=== PATIENT | female | born 1945 ===

== ENCOUNTER → 2022-05-17 14:10 | Outpatient (REF) | payer MEDICARE, SELFPAY ==
--- NOTE | 2022-05-17 14:16 | CA_ITS ---
Transthoracic Echocardiogram Patient (Last, First, Middle): [place] Obrien H Gender: Female Date of : 1945 Age: 76 Procedure Date: 05/17/2022 Procedure Type: Transthoracic Echocardiogram Location: OP Height: 147.32 cm Weight: 74.84 kg BSA: 1.68 m2 Heart Rate: 58 bpm BP: 140 / 80 mmHg Case Preparer And Liner: JOSE Referring MD: Una Donaldson MD Waxer Floor: Kevin Marie MD Symptoms: CARDIAC MURMUR Study Quality: Adequate ECG Rhythm: Bradycardia Conclusions: - 1. Normal LV systolic function with mild LVH 2. Moderate aortic stenosis, could be overestimated due to calculated LVOT diameter with mean gradient of 16 mm Hg 3. Mild aortic regurgitation 4. Normal RV systolic pressure 5. No gross pericardial effusion Findings Left Ventricle Normal left ventricular size and systolic function. There is mildly increased left ventricular wall thickness. The visually estimated ejection fraction is between 60-65%. Spectral Doppler is indicative of an impaired relaxation filling pattern. E/E prime ratio is between 8 and 15 consistent with indeterminate filling pressures. Right Ventricle Normal right ventricular cavity size and systolic function. Atria The left atrium is likely dilated. There is lipomatous hypertrophy of the interatrial septum. There is no evidence of interatrial shunt. The right atrium is normal in size. Aortic Valve The aortic valve was not well visualized. There is mild calcification of the aortic valve. There is moderate aortic valve stenosis. The mean gradient is 16 mmHg. The aortic valve area is 1.21 cm2. There is mild aortic valve regurgitation. Mitral Valve There is mild anterior mitral leaflet thickening. There is moderate mitral annular calcification. There is trace mitral valve regurgitation. There is no mitral valve stenosis. Pulmonic Valve The pulmonic valve was not well visualized. Tricuspid Valve Likely normal tricuspid valve structure and function. There is trace tricuspid valve regurgitation. The right ventricular systolic pressure is normal. Normal right atrial pressure. There is no evidence of pulmonary hypertension. Great Vessels The aorta was not well visualized. The pulmonary artery was not well visualized. Venous The inferior vena cava is normal in size and collapses greater than 50% with inspiration. Pericardium/Pleural There is no evidence of pericardial effusion. Prior Study Comparison Changes noted compared to prior study dated: 01/24/2019. aortic stenosis is present Measurements 2D Linear Measurements IVSd: 1.22 0.6-0.9/0.6-1.0 cm LVIDd: 3.43 3.9-5.3/4.2-5.9 cm LVIDd Index: 2.04 2.4-3.2/2.2-3.1 cm/m2 LVIDs: 2.15 2.0-3.6 cm LVPWd: 1.22 0.7-1.1 cm LA Diam: 3.50 2.7-3.8/3.0-4.0 cm LAIDs Index: 2.08 1.5-2.3 cm/m2 LV Mass: 168.38 67-162/88-224 g LV Mass Index: 100.23 43-95/49-115 g/m2 LVOT Diam: 1.90 3.0+(-)1.3 cm 2D Systolic Function EF 4C: 59.70 >55% EF 2C: 62.70 >55% EF BiP: 61.20 >55% Mitral Valve MV Pk E: 0.71 MV PK A: 1.13 MV Decel Time: 278.00 E/A: 0.60 E'Lateral: 5.33 E'Medial: 4.24 E/E' Med: 16.70 E/E' Lat: 13.30 PHT: 81.00 MVA PHT: 2.72 Decel [place]: 2.55 Aortic Valve AoV Pk Ke[place]: 2.70 AoV Mn Ke[place]: 1.86 AoV VTI: 0.65 AoV Pk Grad: 29.00 Aov Mn Grad: 16.00 JULIANA Cont.VTI: 1.21 AI Pk [place]: 4.91 AI [place]: 2.63 LVOT LVOT Pk Keenan: 1.15 LVOT Mn [place]: 0.81 LVOT VTI: 0.28 LVOT Pk Grad: 5.00 LVOT Mn Grad: 3.00 LVOT Diam: 1.90 LVOT Area: 2.84 Diastolic Function MV Pk E: 0.71 MV Pk A: 1.13 E/A: 0.60 E'Medial: 4.24 E/E' Med: 16.70 E' Laterial: 5.33 E/E' Lat: 13.30 Right Ventricle TAPSE (mm): 25.60 TVS' [place]: 11.80 Tricuspid Valve TR Pk [place]: 1.67 TR Pk Grad: 11.00 RA Press: 3.00 RVSP: 14.00 Great Vessels Aorta Sinus of Valsalva: 2.80 2.0-3.5 cm Ao Asc: 2.20 2.1-3.4 cm Pulmonary Valve PV Pk Ke[place]: 1.29 Peak PV Grad: 7.00 Updated in Other Vendor System with Status of Final Kevin Marie MD electronically signed on 05/17/2022 4:25:37 PM with status of Final
== END ==
LOC: HO.CARD 14:10
PROVIDERS: PCP Internal Medicine; Visit Provider Internal Medicine
DX: R01.1 Cardiac murmur, unspecified (principal)
CPT/HCPCS: 93306

== ENCOUNTER → 2022-06-25 09:35 | Outpatient (BNVA) | payer MEDICARE, SELFPAY | PROVIDERS: PCP Internal Medicine; Referring Provider Internal Medicine; Visit Provider Internal Medicine Cardiovascular Disease | DX: R06.02 Shortness of breath (principal); I35.0 Nonrheumatic aortic (valve) stenosis | CPT/HCPCS: 93005; 99212 ==

== ENCOUNTER 2022-07-01 08:37 | Outpatient (REF) | payer MEDICARE, SELFPAY ==
[2022-07-01 12:03] LABS: Cholesterol 261 mg/dL; HDL Cholesterol 49 mg/dL; LDL Cholesterol Calculated 185 mg/dl; Triglycerides 135 mg/dL
== END 2022-07-01 08:38 | disposition home or self-care (01) ==
LOC: HO.HMGCLDS 08:37
PROVIDERS: PCP Internal Medicine; Visit Provider Internal Medicine Cardiovascular Disease
DX: I25.10 Atherosclerotic heart disease of native coronary artery without angina pectoris (principal); I35.0 Nonrheumatic aortic (valve) stenosis
CPT/HCPCS: 36415; 80061

== ENCOUNTER → 2022-07-19 08:06 | Outpatient (REF) | payer MEDICARE, SELFPAY ==
--- NOTE | ~2022-07-19 | NM_ITS ---
Lexiscan Myocardial perfusion study Indication: Coronary disease, assess for ischemia Technique: The patient was brought in for a Lexiscan perfusion study on 07/19/2022 and was injected 0.4 mg of Lexiscan intravenously. Within a minute of this injection 25 mCi of sestamibi was given intravenously. Images were obtained using the SPECT gamma camera interlaced with the gating device. Images were obtained in supine position. Resting perfusion study was performed on 07/20/2022. Patient was administered 25 mCi of sestamibi intravenously at rest. Images were then obtained in supine position. Images were processed with the software and compared side to side in short axis, horizontal long axis and vertical long axis views. Total DLP 129mGy-cm. Findings: Raw acquisition reviewed. The stress perfusion study showed mildly diminished tracer uptake in the lateral wall. Mildly reduced tracer uptake at the apical lateral wall. There is improvement with CT attenuation correction, suggestive of components of soft tissue attenuation. The gated study shows normal LV systolic function with calculated LVEF of 73%. LV cavity is normal in size. The gated study shows normal wall thickening and contraction of segments. Resting study shows no significant perfusion abnormality. Gating at rest reveals normal wall motion with ejection fraction at 66%. The findings are consistent with mild reversible perfusion defect in the basal lateral wall and apical lateral wall probably from soft tissue attenuation artifact. NM/NM cardiolite stress test Impression: 1. Myocardial perfusion imaging study shows no clear evidence of any ischemia or infarction. Likely normal myocardial perfusion. 2. Gated LVEF is 70% during stress and 66% during rest. 3. Transient ischemic dilatation not present. EKG component of the test reported separately.
--- NOTE | 2022-07-19 08:09 | CA_ITS ---
Acquisition Time: 2022-07-19 08:31:41 Total Exercise Time: 00:03:04 Test Indications: CHEST PAIN SOB Medications: LISINOPRIL METOPROLOL ALBUTEROL Protocol: KIRSTEN Max HR: 097 BPM 68% of Pred: 142 BPM Max BP: 138/074 mmHG Max Work Load: 4.6 METS Exercise stress test with exercise 3 min 4 sec of Kirsten protocol, with request to stop due to sob and inability to keep up with speed of treadmill, EKGs nondiagnositic due to suboptimal heart rate. Patient assisted to sitting position and once breathing improved, testing changed to a pharmacological stress test with Lexiscan injection, while sitting and kicking her legs, with mild sob, no chest discomfort, with isolated PVCs and PACs, with normotenisive response to injection, with nondiagnostic EKG for ischemia. In recovery she was treated with Aminophylline 75mg IVP to reverse Lexiscan. Nuclear images pending. Test reviewed with Dr Marie Referred By: Kevin Marie Overread By: CHARISMA MCCULLOUGH
== END ==
LOC: HO.CARD 08:06
PROVIDERS: PCP Internal Medicine; Visit Provider Internal Medicine Cardiovascular Disease
DX: R07.9 Chest pain, unspecified (principal); R06.02 Shortness of breath
CPT/HCPCS: 78452; 93017; A9500; J0280; J2785

== ENCOUNTER → 2022-08-11 10:40 | Outpatient (BNVA) | payer MEDICARE, SELFPAY | PROVIDERS: PCP Internal Medicine; Referring Provider Internal Medicine; Visit Provider Internal Medicine Cardiovascular Disease | DX: I35.0 Nonrheumatic aortic (valve) stenosis (principal); I10 Essential (primary) hypertension | CPT/HCPCS: 99212 ==

== ENCOUNTER 2022-09-13 10:01 | Outpatient (REF) | payer MEDICARE, SELFPAY ==
--- NOTE | ~2022-09-13 | XR_ITS ---
EXAMINATION: XR CHEST CLINICAL INFORMATION: Shortness of breath COMPARISON: None available. TECHNIQUE: 2 views of the chest were obtained. FINDINGS: The cardiac silhouette does not appear enlarged. The thoracic aorta is tortuous and calcified. Hilar and mediastinal contours are otherwise unremarkable. Biapical pleural thickening. The lungs are otherwise clear. No pleural effusion or pneumothorax. Scoliosis and degenerative changes of the spine. XR/XR chest 2V IMPRESSION: No evidence for acute disease in the chest.
== END 2022-09-13 10:02 | disposition home or self-care (01) ==
LOC: HO.XRAY 10:01
PROVIDERS: PCP Internal Medicine; Visit Provider Internal Medicine
DX: J44.9 Chronic obstructive pulmonary disease, unspecified (principal); G47.33 Obstructive sleep apnea (adult) (pediatric); Z87.891 Personal history of nicotine dependence; Z79.899 Other long term (current) drug therapy
CPT/HCPCS: 71046; 99202

== ENCOUNTER 2022-09-17 10:28 | Outpatient (REF) | payer MEDICARE, SELFPAY | END 2022-09-17 10:29 | disposition home or self-care (01) | LOC: HO.RESP 10:28 | PROVIDERS: PCP Internal Medicine; Visit Provider Internal Medicine | DX: J44.9 Chronic obstructive pulmonary disease, unspecified (principal); R06.02 Shortness of breath; R40.0 Somnolence; G47.33 Obstructive sleep apnea (adult) (pediatric); Z87.891 Personal history of nicotine dependence | CPT/HCPCS: 94060; 94727; 94729 ==

== ENCOUNTER 2022-10-26 14:20 | Outpatient (AMB) | payer MEDICARE, SELFPAY ==
--- NOTE | 2022-10-26 14:31 | A.OFFVIS_ITS ---
Intake Vital Signs 10/26/22 14:32 Height 4 ft 11 in Weight 169 lb BMI 34.1 BP 130/80 Blood Pressure Location Lt brachial Position Sitting Pulse 58 Pulse Source Pulse Oximeter Pulse Oximetry (%) 97 Oxygen Delivery Method Room Air Intake Visit Reasons: copd Intake Note: pt is here for follow up and states she is very short of breath with walking, pt would like to be tested for portable oxygen if needed, weather is not good for her. Hot Die Picker Required: No Allergies codeine Allergy (Unknown, Verified 10/26/22 16:23) Nausea and Vomiting meperidine [Demerol] Allergy (Unknown, Verified 10/26/22 16:23) mental state penicillin V Allergy (Unknown, Verified 10/26/22 16:23) Rash Heyinlq-BXO-UcG Reductase Inhibitor Adverse Reaction (Intermediate, Verified 10/26/22 16:23) muscle aches all over Darvon Allergy (Unknown, Uncoded 10/26/22 16:23) mental state Dust Allergy (Unknown, Uncoded 10/26/22 16:23) Cough Latex Allergy (Unknown, Uncoded 10/26/22 16:23) Rash Sesonal Allergy (Unknown, Uncoded 10/26/22 16:23) sneze, cough Medication List - Last Reconciled 10/26/22 by Ami Calzada MD albuterol sulfate 90 mcg/actuation 0 mcg inhalation evolocumab (Repatha SureClick) 140 mg subcut Q2W ezetimibe 10 mg PO DAILY ketorolac 0.5% 0 drps ophthalmic (eye) lisinopril-hydrochlorothiazide 20-12.5 mg 1 tab PO DAILY metoprolol succinate ER 200 mg PO DAILY nitrofurantoin monohyd/m-cryst 100 mg 1 cap PO BID triamcinolone acetonide 0.025% 1 appl topical BID Do you need a note to return to daycare/school/sports/work: No HPI copd HPI Details 77 YEARS OLD FEMALE, WITH PAST HISTORY OF SMOKING, ALSO MODERATELY OBESE, COMES FOR FOLLOW-UP, SHE HAS HAD CHEST X-RAY WHICH WAS NORMAL. SHE HAS HAD PULMONARY FUNCTION TEST WHICH IS ABNORMAL, SHOWING MODERATELY SEVERE OBSTRUCTIVE AIRWAY DISORDER. HOME-BASED SLEEP STUDY HAS NOT BEEN SCHEDULED YET. AGAIN COMPLAINS OF SHORTNESS OF BREATH ON WALKING, ESPECIALLY IF SHE WALKS FAST OR CLIMBS STAIRS. DENIES ANY WHEEZING. SHE WAS GIVEN ALBUTEROL INHALER TO USE P.R.N. BUT SHE HAS NOT NEEDED TO USE IT. WHEN SHE WALKS SHE ALSO FEELS, TIGHT IN FRONT OF HER CHEST SHE HAS HAD CARDIAC STRESS TEST WHICH WAS NEGATIVE. [facility] Medical History Aortic stenosis Cataract (lens) fragments in eye following cataract surgery, left eye COPD (chronic obstructive pulmonary disease) History of smoking at least 1 pack per day for at least 30 years HTN (hypertension) YADY (obstructive sleep apnea) PVCs (premature ventricular contractions) Somnolence, daytime Social History Patient Tobacco Use Status: Former Tobacco user Years Smoked: 66 Review of Systems Const All systems reviewed & are unremarkable except as noted in HPI and below Eyes Reports no additional complaints ENT Reports no additional complaints Card Denies chest pain, Denies syncope, Denies irregular heart rhythm and Denies leg edema Resp Reports as per HPI GI Reports no additional complaints Reports nocturia Musc Reports no additional complaints Skin/Breast Reports system reviewed and no additional complaints, except as documented Neuro Reports no additional complaints and Denies syncope Psych Reports no additional complaints Endo Reports no additional complaints Wade/Lymph Reports no additional complaints Aller/Immun Reports no additional complaints Physical Exam Vital Signs: Last Vital Signs Pulse 58 10/26/22 14:32 BP 130/80 10/26/22 14:32 Pulse Ox 97 10/26/22 14:32 Oxygen Delivery Method Room Air 10/26/22 14:32 BMI result Body Mass Index 34.1 She is moderately obese, neck is short and obese,, face is round. 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 Cardio Palpation: normal PMI Rate: regular rate Rhythm: regular rhythm Heart sounds: no gallops and Murmur heart sound present (Faint systolic murmur at aortic area) GI Palpation (GI): Soft to palpation, nontender, No hepatosplenomegaly present and no masses Auscultation: normal bowel sounds Back/Spine/Pelvis Thoracic/Lumbar Spine: thoracic and lumbar spine normal to inspection Skin General skin exam: no rashes or lesions noted Neuro General: patient oriented x3 and no focal motor deficits Cranial nerves: Yes CN's II-XII intact bilaterally Extrem General: Yes normal to inspection, Yes no clubbing, cyanosis or edema and Yes no calf tenderness Psych Appearance: grossly normal and well kempt Speech and movement: Normal speech and movement present Office Procedures 6 Minute Walk Time:: 15:00 SPO2 % at rest: 95 Pulse at rest: 59 SPO2 % during excercise: 94 Pulse during excercise: 73 SPO2 % after excercise: 95 Pulse after excercise: 70 Distance in yards walked: 200 Thomas Score: 5 Performance Observations:: Geneva walked on level ground without assistance, she walked on room air for the entire walk. She maintained her SPO2 94-96% on room air, no supplemental O2 [place] [id number] - 6 Minute Walk Results Reviewed Results Reviewed: Chest. x-ray normal Pulmonary function test, moderate degree of obstructive airway disorder. FEF 25-75 did improved by 30% after BD therapy. 6 minutes walk test done today : Walked good . There was no significant desaturation. Lowest O2 sat 94% Assessment & Plan Assessment & Plan (1) History of smoking at least 1 pack per day for at least 30 years: Comment: She does have history of smoking, luckily .quit is more than 6 years ago Chest x-ray is ordered. Code(s): Z87.891 - Personal history of nicotine dependence (2) COPD (chronic obstructive pulmonary disease): Comment: As per pulmonary function test she has moderately severe obstructive airway disorder. There was slight improvement in FEF 25-75 , but not in the other numbers. [place] : Had a good discussion with the patient and explained to her the findings of the PFT. Will try a LAMA agent / and see if it improves her breathing. ( Incr use Ellipta or equivalent ) Albuterol HFA 1 or 2 puffs Q 4-6 hours only p.r.n.. Code(s): J44.9 - Chronic obstructive pulmonary disease, unspecified (3) SOB (shortness of breath) on exertion: Comment: Dyspnea on exertion, moderately severe, probably secondary to chronic obstructive pulmonary disease/ . And overweight She was observed to walk fairly fast without any distress. 6 minutes walk test did not show any exercise induced hypoxemia. Patient is encouraged to lose weight, and do deep breathing exercises t.i.d.. Code(s): R06.02 - Shortness of breath (4) Somnolence, daytime: Comment: Patient does have excessive snoring at night as for her son. She wakes up a few times during the night. She remains tired during the daytime. She tends to fall asleep if early in the evening of specially after dinner. NEED TO CHECK HER FOR OBSTRUCTIVE SLEEP APNEA. Code(s): R40.0 - Somnolence (5) YADY (obstructive sleep apnea): Comment: She has physical features is indicated of obstructive sleep apnea. She has history of oxygen desaturations during the night, again indicative of of sleep apnea. She does have daytime sleepiness but tries to stay active. PLAN : AFTER FULL DISCUSSION WITH HER, DECIDED THAT SHE SHOULD HAVE HOME-BASED SLEEP STUDY. Will decide after the sleep study if she needs is CPAP therapy or not . Code(s): G47.33 - Obstructive sleep apnea (adult) (pediatric) Orders: Orders AMB 6 minute walk Today R06.02 - Shortness of breath Coding Level of Care Code Est Pt Level 3 (01363) Diagnoses History of smoking at least 1 pack per day for at least 30 years Z87.891 COPD (chronic obstructive pulmonary disease) J44.9 SOB (shortness of breath) on exertion R06.02 Somnolence, daytime R40.0 YADY (obstructive sleep apnea) G47.33 CPT Codes Coding ([id number])
[2022-10-26 14:32] VITALS: BP 130/80; PULSE 58; O2SAT 97; BMI 34.1
[2022-10-26 15:09] VITALS: PULSE 59; O2SAT 95
== END 2022-10-26 15:19 | disposition home or self-care (01) ==
PROVIDERS: PCP Internal Medicine; Visit Provider Internal Medicine
DX: Z87.891 Personal history of nicotine dependence (principal); J44.9 Chronic obstructive pulmonary disease, unspecified; R06.02 Shortness of breath; R40.0 Somnolence; G47.33 Obstructive sleep apnea (adult) (pediatric)
CPT/HCPCS: 94618; 99213

== ENCOUNTER → 2022-10-26 14:20 | Outpatient (BNVA) | payer MEDICARE, SELFPAY | PROVIDERS: PCP Internal Medicine; Visit Provider Internal Medicine | DX: J44.9 Chronic obstructive pulmonary disease, unspecified (principal); R06.02 Shortness of breath; R40.0 Somnolence; G47.33 Obstructive sleep apnea (adult) (pediatric); Z87.891 Personal history of nicotine dependence | CPT/HCPCS: 94618; 99212 ==

== ENCOUNTER 2022-11-04 12:42 | Outpatient (AMB) | payer MEDICARE, SELFPAY ==
[2022-11-04 14:36] VITALS: BP 126/76; PULSE 53; O2SAT 94; BMI 34.1
--- NOTE | 2022-11-04 14:36 | MHC.OFFWIV ---
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 Intake Note: Pt is here today for a walk in visit. Pt c/o pain and burning when urinating lower abdominal pain for few days. Patient Tobacco Use Status: Former Tobacco user Allergies codeine Allergy (Unknown, Verified 11/04/22 14:46) Nausea and Vomiting meperidine [Demerol] Allergy (Unknown, Verified 11/04/22 14:46) mental state penicillin V Allergy (Unknown, Verified 11/04/22 14:46) Rash Akvrkkn-THO-DiV Reductase Inhibitor Adverse Reaction (Intermediate, Verified 11/04/22 14:46) muscle aches all over [place] Allergy (Unknown, Uncoded 11/04/22 14:46) mental state Dust Allergy (Unknown, Uncoded 11/04/22 14:46) Cough Latex Allergy (Unknown, Uncoded 11/04/22 14:46) Rash Sesonal Allergy (Unknown, Uncoded 11/04/22 14:46) sneze, cough 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 HPI Details Patient is a 77-year-old female comes to the walk-in clinic complaining of painful urination and lower abdominal pressure for the last few days. She states symptoms are similar to when she gets urinary tract infections in the past. She has a history of incontinence of urine. She is also started on new respiratory med that she states has urinary tract infections as a side effect. She states that she does have a urologist that she sees, and it is common for her to not have any abnormal findings on her urinalysis. I asked if she had been diagnosed with interstitial cystitis, and she said no. She states her symptoms usually clear with antibiotics. She denies fever or chills, gross hematuria, nausea vomiting or diarrhea, dizziness or weakness, or other significant associated symptoms. Reviewed past medical history with the patient [facility] Medical History Aortic stenosis Cataract (lens) fragments in eye following cataract surgery, left eye COPD (chronic obstructive pulmonary disease) History of smoking at least 1 pack per day for at least 30 years HTN (hypertension) YADY (obstructive sleep apnea) PVCs (premature ventricular contractions) Somnolence, daytime Social History Patient Tobacco Use Status: Former Tobacco user Years Smoked: 66 Review of Systems Const All systems reviewed & are unremarkable except as noted in HPI and below Physical Exam Vital Signs: Last Vital Signs Pulse 53 11/04/22 14:36 BP 126/76 11/04/22 14:36 Pulse Ox 94 11/04/22 14:36 Oxygen Delivery Method Room Air 11/04/22 14:36 BMI result Body Mass Index 34.1 Const General: cooperative, healthy appearing, comfortable, no acute distress, alert, awake, Physically active and well groomed; No anxious, diaphoretic, ill appearing, intoxicated appearing, poor hygiene or tired appearing Nutritional Appearance: average body habitus Limitations: no limitations Resp Effort & Inspection: normal respiratory effort Auscultation: clear to auscultation bilaterally, no crackles, no rales, no rhonchi, no wheezes, lung sounds not diminished and No rub present Cardio Rate: regular rate Rhythm: regular rhythm GI Palpation (GI): Soft to palpation, Tenderness to palpation present (GI) suprapubicly and no guarding General: Yes no CVA tenderness Back/Spine/Pelvis Back: no CVA tenderness Psych Appearance: grossly normal Mental Status: mental status grossly normal Speech and movement: Normal speech and movement present Affect: normal affect Attitude: cooperative Thought process: Normal thought process present Insight: Good insight present (Psych) Judgement: Good judgement present (Psych) Results AMB Urinalysis, Automated UA Leukoctes 0 Radha/uL Last Edit by SANTANA Malcolm on 11/04/22 14:50 UA Nitrite Negative Last Edit by SANTANA Malcolm on 11/04/22 14:50 UA Urobilinogen 0.2 mg/dL Last Edit by SANTANA Malcolm on 11/04/22 14:50 UA Protein 0 mg/dL Last Edit by SANTANA Malcolm on 11/04/22 14:50 UA pH 6.0 Last Edit by SANTANA Malcolm on 11/04/22 14:50 UA Blood 0 Gurpreet/uL Last Edit by Priyanka De Jesus, A on 11/04/22 14:50 UA Specific [place]pine 1.025 Last Edit by Priyanka De Jesus, A on 11/04/22 14:50 UA Ketone Negative Last Edit by Priyanka De Jesus, RMA on 11/04/22 14:50 UA Bilirubin 0 mg/dL Last Edit by Priyanka De Jesus, RMA on 11/04/22 14:50 UA Glucose 0 mg/dL Last Edit by Priyanka De Jesus, RMA on 11/04/22 14:50 Results Reviewed Results Reviewed: Laboratory Last Values Urine pH (Auto) 6.0 11/04/22 14:48 Specific [place]pine (Auto) 1.025 11/04/22 14:48 Urine Protein (Auto) 0 mg/dL 11/04/22 14:48 Glucose (UA)(Auto) 0 mg/dL 11/04/22 14:48 Urine Ketones (Auto) Negative 11/04/22 14:48 Urine Blood (Auto) 0 Gurpreet/uL 11/04/22 14:48 Urine Nitrite (Auto) Negative 11/04/22 14:48 Urine Bilirubin (Auto) 0 mg/dL 11/04/22 14:48 Urine Urobilinogen (Auto) 0.2 mg/dL 11/04/22 14:48 Leukocyte Esterase (Auto) 0 Radha/uL 11/04/22 14:48 Assessment & Plan Assessment & Plan (1) Dysuria: Code(s): R30.0 - Dysuria Plan Patient with possible recurrence cystitis, and no symptoms or costovertebral angle tenderness suggestive of pyelonephritis. I will send her urine out for microscopy and susceptibility testing and will start her empirically on nitrofurantoin. As she states that she has not been able to have bacteria grown with past flare-up of symptoms, it is possible that this is interstitial cystitis, however she does have a urologist and she can follow-up with them further. I advised adequate fluid intake, and monitoring symptoms. Orders: Orders UA CC w/rflx Micro + Cult 11/04/22 R30.0 - Dysuria JEFFREY Miller AMB Urinalysis Automated 11/04/22 Z13.9 - Encounter for screening, unspecified JEFFREY Miller Medications: New sulfamethoxazole-trimethoprim 800-160 mg (Bactrim DS) 1 tab PO BID 14 tabs 0RF 7 days Brien Frost MD Changed From nitrofurantoin monohyd/m-cryst 100 mg 1 cap PO BID To nitrofurantoin monohyd/m-cryst 100 mg 1 cap PO BID 10 caps 0RF 5 days JEFFREY Miller Coding Level of Care Code Est Pt Level 4 (38651) Diagnoses Dysuria R30.0
== END 2022-11-04 16:29 | disposition home or self-care (01) ==
PROVIDERS: PCP Internal Medicine; Visit Provider Physician Assistant Medical
DX: R30.0 Dysuria (principal)
CPT/HCPCS: 81003; 99214

== ENCOUNTER 2022-11-04 18:00 | Outpatient (REF) | payer MEDICARE, SELFPAY ==
[2022-11-04 18:15] LABS: Appearance Urine Clear; Color Urine Yellow; Glucose Urine UA Negative (Negative); Leukocyte Esterase Urine Trace (Negative); Nitrite Urine Negative (Negative); PH 5.5 (5.0-9.0); Specific Gravity - Urine 1.015 (1.005-1.025); UMIC TRIGGER UACC YES; Urine Blood Negative (Negative); Urine Ketones Negative (Negative); Urine Protein Negative (Neg-Trace)
[2022-11-04 18:18] LABS: Bacteria Urine None Seen (None Seen); Hyaline Casts Urine 0-2 /LPF (0-2); RBC Urine 0-2 /HPF (0-2); Squamous Epithelial Cell Urine 0-2 /HPF (0-2); WBC Urine 0-5 /HPF (0-5)
== END 2022-11-04 18:01 | disposition home or self-care (01) ==
LOC: HO.HMGCLNP 18:00
PROVIDERS: Visit Provider Physician Assistant Medical
DX: R30.0 Dysuria (principal)
CPT/HCPCS: 81001

== ENCOUNTER 2022-12-15 08:29 | Outpatient (REF) | payer MEDICARE, SELFPAY ==
--- NOTE | ~2022-12-15 | CT_ITS ---
EXAMINATION: CT ABDOMEN AND PELVIS WITHOUT AND WITH CONTRAST CLINICAL INFORMATION: Kidney and ureter cyst. COMPARISON: Renal ultrasound 05/27/2022. TECHNIQUE: Multidetector volumetric imaging was performed of the abdomen and pelvis before and after the IV administration of 85 mL of Omnipaque 350 intravenous contrast. Sagittal and coronal reformatted images were obtained on the technologist's workstation. This CT examination was performed using dose optimization techniques as appropriate, variously including the following: *Automated exposure control *Adjustment of mA and/or kV according to patient size (this includes techniques or standardized protocols for targeted exams where dose is matched to indication/reason for exam; i.e. extremities or head) *Use of iterative reconstruction technique DLP: 731 mGy-cm FINDINGS: LUNG BASES: The visualized lung bases are unremarkable. LIVER, GALLBLADDER, AND BILIARY TREE: The liver is normal in size, shape, and attenuation. No focal hepatic lesion or biliary ductal dilatation is present. Cholecystectomy. PANCREAS: The pancreas appears normal. No discrete mass or ductal dilatation. SPLEEN: The spleen appears normal. ADRENAL GLANDS: No adrenal mass. KIDNEYS AND URETERS: Symmetric nephrograms. Simple Bosniak 1 cysts are seen bilaterally in the kidneys. Additional tiny cortical hypodensities are too small to characterize but most likely cysts and are therefore categorized as Bosniak 2. No follow-up imaging is recommended. There is no suspicious solid renal mass. No nephrolithiasis. No hydroureteronephrosis. BLADDER: Unremarkable GASTROINTESTINAL TRACT: Small hiatal hernia. The small bowel is normal in caliber. No mesenteric mass or fluid. Minimal sigmoid diverticulosis without evidence of diverticulitis. ABDOMINAL WALL: No significant hernia is appreciated. LYMPH NODES: No adenopathy. VASCULAR: Moderate aortoiliac atherosclerotic disease. Negative for abdominal aortic aneurysm. PELVIC VISCERA: Unremarkable. OSSEOUS STRUCTURES: Degenerative changes in the spine. CT/CT abdomen pelvis wo/w IV con IMPRESSION: No suspicious renal mass. Fleischner guidelines were followed.
[2022-12-15] MEDS: iohexoL 350 MG/ML 100 ML INFUS..BTL IV (09:20)
[2022-12-15 13:21] LABS: Creatinine POC 0.8 mg/dL (0.5-1.4); GFR POC 60
== END 2022-12-15 08:30 | disposition home or self-care (01) ==
LOC: HO.CT 08:29
PROVIDERS: PCP Internal Medicine; Visit Provider Urology
DX: N28.89 Other specified disorders of kidney and ureter (principal); N28.1 Cyst of kidney, acquired
CPT/HCPCS: 74178; 82565; Q9967

== ENCOUNTER 2022-12-21 11:26 | Outpatient (REF) | payer MEDICARE, SELFPAY ==
[2022-12-21 13:48] LABS: Cholesterol 135 mg/dL (<200); HDL Cholesterol 43 mg/dL (>40); LDL Cholesterol Calculated 54 mg/dL (<100); Triglycerides 193 mg/dL (<150)
== END 2022-12-21 11:27 | disposition home or self-care (01) ==
LOC: HO.HMGCLDS 11:26
PROVIDERS: PCP Internal Medicine; Visit Provider Internal Medicine Cardiovascular Disease
DX: E78.5 Hyperlipidemia, unspecified (principal)
CPT/HCPCS: 36415; 80061

== ENCOUNTER 2023-01-03 14:04 | Outpatient (AMB) | payer MEDICARE, SELFPAY ==
[2023-01-03 14:07] VITALS: BP 122/76; PULSE 68; O2SAT 97; BMI 35.0
--- NOTE | 2023-01-03 14:07 | A.OFFVIS_ITS ---
Intake Vital Signs 01/03/23 14:07 Height 4 ft 11 in Weight 173 lb 1.006 oz BMI 35.0 BP 122/76 Blood Pressure Location Lt brachial Position Sitting Pulse 68 Pulse Source Doppler Pulse Oximetry (%) 97 Oxygen Delivery Method Room Air Intake Visit Reasons: copd Intake Note: Patient is here for a follow up on COPD, patient having trouble with Incruse El lipta side effects. patient stated no one has called her for sleep study Allergies codeine Allergy (Unknown, Verified 01/03/23 14:16) Nausea and Vomiting meperidine [Demerol] Allergy (Unknown, Verified 01/03/23 14:16) mental state penicillin V Allergy (Unknown, Verified 01/03/23 14:16) Rash Lhkaokf-HAY-FsR Reductase Inhibitor Adverse Reaction (Intermediate, Verified 01/03/23 14:16) muscle aches all over Darvon Allergy (Unknown, Uncoded 01/03/23 14:16) mental state Dust Allergy (Unknown, Uncoded 01/03/23 14:16) Cough Latex Allergy (Unknown, Uncoded 01/03/23 14:16) Rash Sesonal Allergy (Unknown, Uncoded 01/03/23 14:16) sneze, cough Medication List - Last Reconciled 01/03/23 by Ami Calzada MD albuterol sulfate 90 mcg/actuation 0 mcg inhalation evolocumab (Repatha SureClick) 140 mg subcut Q2W ezetimibe 10 mg PO DAILY ketorolac 0.5% 0 drps ophthalmic (eye) lisinopril-hydrochlorothiazide 20-12.5 mg 1 tab PO DAILY metoprolol succinate ER 200 mg PO DAILY nitrofurantoin monohyd/m-cryst 100 mg 1 cap PO BID 5 days sulfamethoxazole-trimethoprim 800-160 mg (Bactrim DS) 1 tab PO BID 7 days triamcinolone acetonide 0.025% 1 appl topical BID umeclidinium 62.5 mcg/actuation (Incruse Ellipta) 1 inh inhalation DAILY 30 days Do you need a note to return to daycare/school/sports/work: No HPI copd HPI Details This 77 years old female comes after 2 months, for follow-up On her last visit she was prescribed Incruse Ellipta 1 inhalation daily, and to use albuterol HFA . As needed She used Incruse Ellipta of 3-4 days. It. Was helping her breathing But she developed lot of symptoms such as gum irritation sore throat, body aches, and when she stop using Incruse Ellipta all the symptoms disappeared. At the same time she does want to a different inhaler that would help her to be able to walk around without getting short of breath. She continues to be tired during the daytime and sleepy, we had discussed about possible sleep apnea. She was supposed to have home sleep study. She missed her appointment in August , now she needs to have it rescheduled. [facility] Medical History Somnolence, daytime YADY (obstructive sleep apnea) History of smoking at least 1 pack per day for at least 30 years COPD (chronic obstructive pulmonary disease) Cataract (lens) fragments in eye following cataract surgery, left eye Aortic stenosis HTN (hypertension) PVCs (premature ventricular contractions) Social History Patient Tobacco Use Status: Former Tobacco user Years Smoked: 66 Review of Systems Const All systems reviewed & are unremarkable except as noted in HPI and below Eyes Reports no additional complaints ENT Reports no additional complaints Card Denies chest pain, Denies syncope, Denies irregular heart rhythm and Denies leg edema Resp Reports as per HPI GI Reports no additional complaints Reports nocturia Musc Reports no additional complaints Skin/Breast Reports system reviewed and no additional complaints, except as documented Neuro Reports no additional complaints and Denies syncope Psych Reports no additional complaints Endo Reports no additional complaints Wade/Lymph Reports no additional complaints Aller/Immun Reports no additional complaints Physical Exam Vital Signs: Last Vital Signs Pulse 68 01/03/23 14:07 BP 122/76 01/03/23 14:07 Pulse Ox 97 01/03/23 14:07 Oxygen Delivery Method Room Air 01/03/23 14:07 BMI result Body Mass Index 35.0 She is moderately obese, neck is short and obese,, face is round. 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 Cardio Palpation: normal PMI Rate: regular rate Rhythm: regular rhythm Heart sounds: no gallops and Murmur heart sound present (Faint systolic murmur at aortic area) GI Palpation (GI): Soft to palpation, nontender, No hepatosplenomegaly present and no masses Auscultation: normal bowel sounds Back/Spine/Pelvis Thoracic/Lumbar Spine: thoracic and lumbar spine normal to inspection Skin General skin exam: no rashes or lesions noted Neuro General: patient oriented x3 and no focal motor deficits Cranial nerves: Yes CN's II-XII intact bilaterally Extrem General: Yes normal to inspection, Yes no clubbing, cyanosis or edema and Yes no calf tenderness Psych Appearance: grossly normal and well kempt Speech and movement: Normal speech and movement present Assessment & Plan Assessment & Plan (1) COPD (chronic obstructive pulmonary disease): Comment: As per pulmonary function test she has moderately severe obstructive airway disorder. There was slight improvement in FEF 25-75 , but not in the other numbers. [place] : Had a good discussion with the patient and explained to her the findings of the PFT. Incruse Ellipta was prescribed. She had some side effects and stopped using it. She would like to have a long-acting bronchodilator , so that she can do daily activities without getting short of breath. I will order Advair 250-50 1 inhalation b.i.d. . And use albuterol HFA p.r.n. Albuterol HFA 1 or 2 puffs Q 4-6 hours only p.r.n.. Code(s): J44.9 - Chronic obstructive pulmonary disease, unspecified (2) SOB (shortness of breath) on exertion: Comment: Dyspnea on exertion, moderately severe, probably secondary to chronic obstructive pulmonary disease/ . And overweight She was observed to walk fairly fast without any distress. 6 minutes walk test was negative for hypoxemia. She is is encouraged to lose weight, and do deep breathing exercises t.i.d.. Code(s): R06.02 - Shortness of breath (3) History of smoking at least 1 pack per day for at least 30 years: Comment: She does have history of smoking, luckily .quit is more than 6 years ago She is participating in ANNUAL lung screening program Code(s): Z87.891 - Personal history of nicotine dependence (4) YADY (obstructive sleep apnea): Comment: She has physical features is indicated of obstructive sleep apnea. She has history of oxygen desaturations during the night, again indicative of of sleep apnea. She does have daytime sleepiness but tries to stay active. PLAN : SLEEP STUDY WAS ORDERED ON HER LAST VISIT BUT SHE MISSED THE APPOINTMENT. SHE WILL CALL FOR RESCHEDULING . Code(s): G47.33 - Obstructive sleep apnea (adult) (pediatric) (5) Somnolence, daytime: Comment: Patient does have excessive snoring at night as for her son. She wakes up a few times during the night. She remains tired during the daytime. She tends to fall asleep if early in the evening of specially after dinner. NEED TO CHECK HER FOR OBSTRUCTIVE SLEEP APNEA. Code(s): R40.0 - Somnolence Medications: New fluticasone propion-salmeterol 250-50 mcg/dose (Advair Diskus) 1 inh inhalation BID 60 ea 2RF copd 30 days Coding Level of Care Code Est Pt Level 3 (72694) Diagnoses COPD (chronic obstructive pulmonary disease) J44.9 SOB (shortness of breath) on exertion R06.02 History of smoking at least 1 pack per day for at least 30 years Z87.891 YADY (obstructive sleep apnea) G47.33 Somnolence, daytime R40.0
== END 2023-01-03 14:33 | disposition home or self-care (01) ==
PROVIDERS: PCP Internal Medicine; Visit Provider Internal Medicine
DX: J44.9 Chronic obstructive pulmonary disease, unspecified (principal); R06.02 Shortness of breath; Z87.891 Personal history of nicotine dependence; G47.33 Obstructive sleep apnea (adult) (pediatric); R40.0 Somnolence
CPT/HCPCS: 99213

== ENCOUNTER → 2023-01-03 14:04 | Outpatient (BNVA) | payer MEDICARE, SELFPAY | PROVIDERS: PCP Internal Medicine; Visit Provider Internal Medicine | DX: J44.9 Chronic obstructive pulmonary disease, unspecified (principal); G47.33 Obstructive sleep apnea (adult) (pediatric); R06.02 Shortness of breath; R40.0 Somnolence; Z87.891 Personal history of nicotine dependence | CPT/HCPCS: 99212 ==

== ENCOUNTER → 2023-01-04 09:02 | Outpatient (REF) | payer MEDICARE, SELFPAY | LOC: HO.SL 09:02 | PROVIDERS: PCP Internal Medicine; Visit Provider Internal Medicine | DX: G47.33 Obstructive sleep apnea (adult) (pediatric) (principal); R40.0 Somnolence | CPT/HCPCS: 95806 ==

== ENCOUNTER → 2023-01-04 09:29 | Outpatient (BNV) | payer MEDICARE, SELFPAY | PROVIDERS: PCP Internal Medicine; Visit Provider Internal Medicine | DX: G47.33 Obstructive sleep apnea (adult) (pediatric) (principal) | CPT/HCPCS: 95806 ==

== ENCOUNTER 2023-03-07 11:05 | Outpatient (AMB) | payer MEDICARE, SELFPAY ==
[2023-03-07 11:12] VITALS: BP 130/64; PULSE 63; O2SAT 96; BMI 34.5
--- NOTE | 2023-03-07 11:12 | A.OFFVIS_ITS ---
Intake Vital Signs 03/07/23 11:12 Height 4 ft 11 in Weight 170 lb 13.732 oz BMI 34.5 BP 130/64 Blood Pressure Location Lt brachial Position Sitting Pulse 63 Pulse Source Pulse Oximeter Pulse Oximetry (%) 96 Oxygen Delivery Method Room Air Intake Visit Reasons: copd Intake Note: pt is here for follow up and states she is okay, had a little wheeze but gone today, allergies kicking up. Allergies codeine Allergy (Unknown, Verified 03/07/23 11:35) Nausea and Vomiting meperidine [Demerol] Allergy (Unknown, Verified 03/07/23 11:35) mental state penicillin V Allergy (Unknown, Verified 03/07/23 11:35) Rash Xxcdmrw-PKS-SsA Reductase Inhibitor Adverse Reaction (Intermediate, Verified 03/07/23 11:35) muscle aches all over Darvon Allergy (Unknown, Uncoded 03/07/23 11:35) mental state Dust Allergy (Unknown, Uncoded 03/07/23 11:35) Cough Latex Allergy (Unknown, Uncoded 03/07/23 11:35) Rash Sesonal Allergy (Unknown, Uncoded 03/07/23 11:35) sneze, cough Medication List - Last Reconciled 03/07/23 by Ami Calzada MD albuterol sulfate 90 mcg/actuation 0 mcg inhalation evolocumab (Repatha SureClick) 140 mg subcut Q2W ezetimibe 10 mg PO DAILY fluticasone propion-salmeterol 250-50 mcg/dose (Advair Diskus) 1 inh inhalation BID 30 days ketorolac 0.5% 0 drps ophthalmic (eye) lisinopril-hydrochlorothiazide 20-12.5 mg 1 tab PO DAILY metoprolol succinate ER 200 mg PO DAILY triamcinolone acetonide 0.025% 1 appl topical BID Do you need a note to return to daycare/school/sports/work: No HPI copd HPI Details 77 YEARS OLD VERY PLEASANT FEMALE WHO IS MODERATELY OBESE, COMES FOR FOLLOW-UP AFTER 2 MONTHS. FOR BREATHING SHE HAS BEEN USING MOSTLY PROAIR ONCE OR TWICE A DAY. SHE DOES COMPLAIN OF INTERMITTENT WHEEZES, ESPECIALLY WHEN SHE WALKS AROUND OR CLIMBS STAIRS. ON HER LAST VISIT ADVAIR 250-50 WAS ORDERED BUT SHE DID NOT GET IT. SHE ALSO GETS SHORT OF BREATH ON WALKING UP HILL OR CLIMBING STAIRS. HER WEIGHT HAS REMAINED UNCHANGED. SLEEP REMAINS DISTURBED WITH LOT OF SNORING, WAKES UP IN THE MORNING WITH A DRY MOUTH. HOME-BASED SLEEP STUDY DOES CONFIRM DIAGNOSIS OF OBSTRUCTIVE SLEEP APNEA MILD TO MODERATE. [facility] Medical History (Updated 03/07/23 @ 11:45 by Ami Calzada MD) Obesity (BMI 30-39.9) Somnolence, daytime YADY (obstructive sleep apnea) History of smoking at least 1 pack per day for at least 30 years COPD (chronic obstructive pulmonary disease) Cataract (lens) fragments in eye following cataract surgery, left eye Aortic stenosis HTN (hypertension) PVCs (premature ventricular contractions) Social History Patient Tobacco Use Status: Former Tobacco user Years Smoked: 66 Review of Systems Const All systems reviewed & are unremarkable except as noted in HPI and below Eyes Reports no additional complaints ENT Reports no additional complaints Card Denies chest pain, Denies syncope, Denies irregular heart rhythm and Denies leg edema Resp Reports as per HPI GI Reports no additional complaints Reports nocturia Musc Reports no additional complaints Skin/Breast Reports system reviewed and no additional complaints, except as documented Neuro Reports no additional complaints and Denies syncope Psych Reports no additional complaints Endo Reports no additional complaints Wade/Lymph Reports no additional complaints Aller/Immun Reports no additional complaints Physical Exam Vital Signs: Last Vital Signs Pulse 63 03/07/23 11:12 BP 130/64 03/07/23 11:12 Pulse Ox 96 03/07/23 11:12 Oxygen Delivery Method Room Air 03/07/23 11:12 BMI result Body Mass Index 34.5 She is moderately obese, neck is short and obese,, face is round. 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 Const General: comfortable, no acute distress, alert and awake Orientation/consciousness: patient oriented x3 HEENT Head: Yes normal to inspection General nose exam: No nasal polyps present and No nasal discharge present Face and sinus: Yes sinuses nontender Mouth: oropharynx normal (Narrow and crowded, Mallampati class 3) Throat: Yes posterior oropharynx normal and Yes other (She does have RETROGANTH IA of the lower jaw) Eyes General: appearance normal, both eyes and all related structures Neck Neck: Yes normal visual inspection, Yes no lymphadenopathy, Yes trachea midline, Yes no JVD and Yes other (Neck size 16 1/2 ) Thyroid: Thyroid normal Chest Chest palpation & inspection: normal inspection of the chest, normal palpation of entire chest wall and no tenderness Resp Other: Percussion note resonant, breath sounds are diminished/distant with prolonged expiratory phase No crepitations or wheezes are heard. Cardio Palpation: normal PMI Rate: regular rate Rhythm: regular rhythm Heart sounds: no gallops and Murmur heart sound present (Faint systolic murmur at aortic area) GI Palpation (GI): Soft to palpation, nontender, No hepatosplenomegaly present and no masses Auscultation: normal bowel sounds Back/Spine/Pelvis Thoracic/Lumbar Spine: thoracic and lumbar spine normal to inspection Skin General skin exam: no rashes or lesions noted Neuro General: patient oriented x3 and no focal motor deficits Cranial nerves: Yes CN's II-XII intact bilaterally Extrem General: Yes normal to inspection, Yes no clubbing, cyanosis or edema and Yes no calf tenderness Psych Appearance: grossly normal and well kempt Speech and movement: Normal speech and movement present Results Reviewed Results Reviewed: HOME-BASED SLEEP STUDY ON 01/04/2023. TOTAL SLEEP TIME AHI A 9.5 AND SUPINE POSITION AHI 34, SLEEPING ON THE RIGHT SIDE AHI 10.9 SLEEPING ON THE LEFT SIDE AHI 7 SNORING 14% OF THE SLEEP TIME. O2 SAT BELOW 88% FOR 16 MINUTES Assessment & Plan Assessment & Plan (1) COPD (chronic obstructive pulmonary disease): Comment: As per pulmonary function test she has moderately severe obstructive airway disorder. There was slight improvement in FEF 25-75 , but not in the other numbers. Code(s): J44.9 - Chronic obstructive pulmonary disease, unspecified Plan: [place] : Had a good discussion with the patient and explained to her the findings of the PFT. ADVAIR 250-50 1 INHALATION B.I.D. IS REORDERED. PROAIR 2 PUFFS Q 4-6 HOURS P.R.N. (2) YADY (obstructive sleep apnea): Comment: SLEEP STUDY DOES CONFIRM THAT SHE HAS MILD TO MODERATE DEGREE OF OBSTRUCTIVE SLEEP APNEA, TOTAL SLEEP TIME AHI 9.5, SUPINE POSITION AHI 34 THERE IS ALSO MILD NOCTURNAL HYPOXEMIA. Code(s): G47.33 - Obstructive sleep apnea (adult) (pediatric) Plan: RESULTS ARE EXPLAINED TO THE PATIENT, DISCUSSED AND I ADVISED THAT SHE SHOULD TRY TO USE CPAP, ESPECIALLY IN VIEW OF MILD NOCTURNAL HYPOXEMIA AND ALSO HER HISTORY OF HAVING AORTIC STENOSIS. SHE SHOULD ALSO TRY TO LOSE ABOUT. 10 LB OF WEIGHT ADVISED TO SLEEP IN LATERAL POSITION. CPAP THERAPY WITH THE USE OF FULLFACE MASK, OR NASAL MASK WITH CHINSTRAP, AUTO PRESSURE SETTING 6-16 CM. WILL USE HUMIDIFICATION. PATIENT IS INSTRUCTED ABOUT USING THE CPAP PROPERLY. (3) Obesity (BMI 30-39.9): Comment: SHE IS MODERATELY OBESE, AT HER AGE OF 77 NOT ABLE TO DO MUCH EXERCISE. WILL TRY TO WATCH HER DIET AND LOSE 5-10 LB OF WEIGHT Code(s): E66.9 - Obesity, unspecified Plan: as above Coding Level of Care Code Est Pt Level 3 (16016) Diagnoses COPD (chronic obstructive pulmonary disease) J44.9 YADY (obstructive sleep apnea) G47.33 Obesity (BMI 30-39.9) E66.9
== END 2023-03-07 11:36 | disposition home or self-care (01) ==
PROVIDERS: PCP Internal Medicine; Visit Provider Internal Medicine
DX: J44.9 Chronic obstructive pulmonary disease, unspecified (principal); G47.33 Obstructive sleep apnea (adult) (pediatric); E66.9 Obesity, unspecified
CPT/HCPCS: 99213

== ENCOUNTER → 2023-03-07 11:05 | Outpatient (BNVA) | payer MEDICARE, SELFPAY | PROVIDERS: PCP Internal Medicine; Visit Provider Internal Medicine | DX: J44.9 Chronic obstructive pulmonary disease, unspecified (principal); G47.33 Obstructive sleep apnea (adult) (pediatric); E66.9 Obesity, unspecified; Z68.34 Body mass index [BMI] 34.0-34.9, adult | CPT/HCPCS: 99212 ==

== ENCOUNTER 2023-05-10 10:58 | Outpatient (AMB) | payer MEDICARE, SELFPAY ==
[2023-05-10 11:15] VITALS: BP 118/62; PULSE 52; O2SAT 98; BMI 34.1
--- NOTE | 2023-05-10 11:15 | MHC.OFFVIS ---
Intake Vital Signs 05/10/23 11:15 Height 4 ft 11 in Weight 168 lb 10.458 oz BMI 34.1 BP 118/62 Blood Pressure Location Lt brachial Position Sitting Pulse 52 Pulse Source Pulse Oximeter Pulse Oximetry (%) 98 Oxygen Delivery Method Room Air Intake Visit Reasons: copd Intake Note: pt is here for follow up and states she is using the cpap, but it is still a struggle to use it. She states yes and no difference with cpap and she states she is yawning more, and still tired. She had to adjust her bed, due to pain, hiccups and acid reflux. Front End Ui Developer Required: No Allergies codeine Allergy (Unknown, Verified 05/10/23 11:46) Nausea and Vomiting meperidine [Demerol] Allergy (Unknown, Verified 05/10/23 11:46) mental state penicillin V Allergy (Unknown, Verified 05/10/23 11:46) Rash Kpfwkdr-GGF-QxS Reductase Inhibitor Adverse Reaction (Intermediate, Verified 05/10/23 11:46) muscle aches all over Darvon Allergy (Unknown, Uncoded 05/10/23 11:46) mental state Dust Allergy (Unknown, Uncoded 05/10/23 11:46) Cough Latex Allergy (Unknown, Uncoded 05/10/23 11:46) Rash Sesonal Allergy (Unknown, Uncoded 05/10/23 11:46) sneze, cough Medication List - Last Reconciled 05/10/23 by Ami Calzada MD albuterol sulfate 90 mcg/actuation 0 mcg inhalation evolocumab (Repatha SureClick) 140 mg subcut Q2W ezetimibe 10 mg PO DAILY fluticasone propion-salmeterol 250-50 mcg/dose (Advair Diskus) 1 inh inhalation BID 30 days ketorolac 0.5% 0 drps ophthalmic (eye) lisinopril-hydrochlorothiazide 20-12.5 mg 1 tab PO DAILY metoprolol succinate ER 200 mg PO DAILY triamcinolone acetonide 0.025% 1 appl topical BID Do you need a note to return to daycare/school/sports/work: No HPI copd HPI Details 77 years old female who definitely looks much younger than her age, is moderately obese with BMI of 34. She was diagnosed to have obstructive sleep apnea moderately severe. Since her last visit has been prescribed the CPAP, with the nasal mask, She has actually been using it every night, missing only 1 night in the last 30 days. She keeps, it on most of the night . And thinks that she still feels . Tired during the daytime However she is not sleepy during the daytime. Breathing has been stable and she uses the albuterol inhaler once or twice a day when she goes outdoors. She has not using the Advair at this time. [facility] Medical History Obesity (BMI 30-39.9) Somnolence, daytime YADY (obstructive sleep apnea) History of smoking at least 1 pack per day for at least 30 years COPD (chronic obstructive pulmonary disease) Cataract (lens) fragments in eye following cataract surgery, left eye Aortic stenosis HTN (hypertension) PVCs (premature ventricular contractions) Social History Patient Tobacco Use Status: Former Tobacco user Years Smoked: 66 Review of Systems Const All systems reviewed & are unremarkable except as noted in HPI and below Eyes Reports no additional complaints ENT Reports no additional complaints Card Denies chest pain, Denies syncope, Denies irregular heart rhythm and Denies leg edema Resp Reports as per HPI GI Reports no additional complaints Reports nocturia Musc Reports no additional complaints Skin/Breast Reports system reviewed and no additional complaints, except as documented Neuro Reports no additional complaints and Denies syncope Psych Reports no additional complaints Endo Reports no additional complaints Wade/Lymph Reports no additional complaints Aller/Immun Reports no additional complaints Physical Exam Vital Signs: Last Vital Signs Pulse 52 05/10/23 11:15 BP 118/62 05/10/23 11:15 Pulse Ox 98 05/10/23 11:15 Oxygen Delivery Method Room Air 05/10/23 11:15 BMI result Body Mass Index 34.1 She is moderately obese, neck is short and obese,, face is round. 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 Cardio Palpation: normal PMI Rate: regular rate Rhythm: regular rhythm Heart sounds: no gallops and Murmur heart sound present (Faint systolic murmur at aortic area) GI Palpation (GI): Soft to palpation, nontender, No hepatosplenomegaly present and no masses Auscultation: normal bowel sounds Back/Spine/Pelvis Thoracic/Lumbar Spine: thoracic and lumbar spine normal to inspection Skin General skin exam: no rashes or lesions noted Neuro General: patient oriented x3 and no focal motor deficits Cranial nerves: Yes CN's II-XII intact bilaterally Extrem General: Yes normal to inspection, Yes no clubbing, cyanosis or edema and Yes no calf tenderness Psych Appearance: grossly normal and well kempt Speech and movement: Normal speech and movement present Results Reviewed Results Reviewed: Compliance report for the last 30 nights is reviewed. She has used 29/30 nights come 97%. Average use per night 7 hours 22 minutes. Pressure used mostly 14 cm. Average leak maximum 59. Residual AHI only 0.6 Assessment & Plan Assessment & Plan (1) Obesity (BMI 30-39.9): Comment: SHE IS MODERATELY OBESE, AT HER AGE OF 77 NOT ABLE TO DO MUCH EXERCISE. WILL TRY TO WATCH HER DIET AND LOSE 5-10 LB OF WEIGHT Code(s): E66.9 - Obesity, unspecified Plan: as above (2) COPD (chronic obstructive pulmonary disease): Comment: As per pulmonary function test she has moderately severe obstructive airway disorder. There was slight improvement in FEF 25-75 , but not in the other numbers. Code(s): J44.9 - Chronic obstructive pulmonary disease, unspecified Plan: Cont. to use Advair 250 1 inhalation b.i.d.. Albuterol HFA 2 puffs Q 4-6 hours only p.r.n., especially when going outdoors. (3) History of smoking at least 1 pack per day for at least 30 years: Comment: She does have history of smoking, luckily .quit is more than 6 years ago She is participating in ANNUAL lung screening program Code(s): Z87.891 - Personal history of nicotine dependence Plan: as above (4) YADY (obstructive sleep apnea): Comment: SLEEP STUDY DOES CONFIRM THAT SHE HAS MILD TO MODERATE DEGREE OF OBSTRUCTIVE SLEEP APNEA, PATIENT IS USING CPAP REGULARLY, . WITH GOOD COMPLIANCE AND IS BENEFITTING. SHE SLEEPS BETTER, DENIES DAYTIME SLEEPINESS. COMPLAINS OF DRY MOUTH, PROBABLY DUE TO BEING MOUTH BREATHER., SHE DOES USE THE HUMIDIFICATION. Code(s): G47.33 - Obstructive sleep apnea (adult) (pediatric) Plan: WILL TRY FULLFACE MASK [id number] , KEEP ON USING HUMIDIFICATION PROPERLY Coding Level of Care Code Est Pt Level 3 (19354) Diagnoses Obesity (BMI 30-39.9) E66.9 COPD (chronic obstructive pulmonary disease) J44.9 History of smoking at least 1 pack per day for at least 30 years Z87.891 YADY (obstructive sleep apnea) G47.33
== END 2023-05-10 11:55 | disposition home or self-care (01) ==
PROVIDERS: PCP Internal Medicine; Visit Provider Internal Medicine
DX: E66.9 Obesity, unspecified (principal); J44.9 Chronic obstructive pulmonary disease, unspecified; Z87.891 Personal history of nicotine dependence; G47.33 Obstructive sleep apnea (adult) (pediatric)
CPT/HCPCS: 99213

== ENCOUNTER → 2023-05-10 10:58 | Outpatient (BNVA) | payer MEDICARE, SELFPAY | PROVIDERS: PCP Internal Medicine; Visit Provider Internal Medicine | DX: J44.9 Chronic obstructive pulmonary disease, unspecified (principal); R06.02 Shortness of breath; G47.33 Obstructive sleep apnea (adult) (pediatric); E66.9 Obesity, unspecified; Z87.891 Personal history of nicotine dependence; Z68.34 Body mass index [BMI] 34.0-34.9, adult | CPT/HCPCS: 99212 ==

== ENCOUNTER → 2023-07-13 09:55 | Outpatient (REF) | payer MEDICARE, SELFPAY ==
--- NOTE | 2023-07-13 09:58 | CA_ITS ---
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 Normal LV ejection fraction of 65-70% with impaired relaxation filling pattern with elevated filling pressures 2. Moderate aortic stenosis with mean gradient of 20 mmHg 3. Normal RV systolic pressure 4. No gross pericardial effusion Findings Left Ventricle Normal left ventricular size, thickness, and systolic function. The visually estimated ejection fraction is between 65-70%. Spectral Doppler is indicative of an impaired relaxation filling pattern. Elevated filling pressures. E/E prime ratio is >15, consistent with elevated filling pressures. Right Ventricle Normal right ventricular cavity size and systolic function. Atria The left atrium is likely dilated. There is no evidence of interatrial shunt. The right atrium is normal in size. Aortic Valve The aortic valve was not well visualized. There is moderate calcification of the aortic valve. There is moderate aortic valve stenosis. The mean gradient is 20 mmHg. The aortic valve area is 1.21 cm2. There is mild aortic valve regurgitation. Mitral Valve There is mild anterior and moderate posterior mitral leaflet thickening. There is moderate mitral annular calcification. There is trace mitral valve regurgitation. There is no mitral valve stenosis. Pulmonic Valve The pulmonic valve was not well visualized. Tricuspid Valve Likely normal tricuspid valve structure and function. There is trace tricuspid valve regurgitation. The right ventricular systolic pressure is normal. The right ventricular systolic pressure is 32 mmHg. Normal right atrial pressure. There is no evidence of pulmonary hypertension. Great Vessels All visible segments of the aorta are normal in size. The pulmonary artery was not well visualized. There is no dilatation of the ascending aorta measuring 2.90 cm. Venous The inferior vena cava is normal in size and collapses greater than 50% with inspiration. Pericardium/Pleural There is no evidence of pericardial effusion. Prior Study Comparison Changes noted compared to prior study dated: 05/17/2022. Mean gradient across aortic valve is marginally increased to 20 mmHg Measurements 2D Linear Measurements IVSd: 1.12 0.6-0.9/0.6-1.0 cm LVIDd: 4.55 3.9-5.3/4.2-5.9 cm LVIDd Index: 2.71 2.4-3.2/2.2-3.1 cm/m2 LVIDs: 2.85 2.0-3.6 cm LVPWd: 0.93 0.7-1.1 cm LA Diam: 3.50 2.7-3.8/3.0-4.0 cm LAIDs Index: 2.08 1.5-2.3 cm/m2 LV Mass: 200.90 67-162/88-224 g LV Mass Index: 119.58 43-95/49-115 g/m2 LVOT Diam: 2.00 3.0+(-)1.3 cm 2D Systolic Function EF 4C: 66.40 >55% EF 2C: 67.10 >55% EF BiP: 67.50 >55% Mitral Valve MV VTI: 0.44 MV Pk Keenan: 1.25 MV Mn Keenan: 0.69 MV Pk Grad: 6.00 MV Mn Grad: 2.00 MV Pk E: 0.85 MV PK A: 1.05 MV Decel Time: 229.00 E/A: 0.80 E'Lateral: 4.46 E'Medial: 4.90 E/E' Med: 17.30 E/E' Lat: 19.00 PHT: 67.00 MVA PHT: 3.28 MVA Continuity: 2.08 Decel Darke: 3.70 Aortic Valve AoV Pk Keenan: 2.94 AoV Mn Keenan: 2.11 AoV VTI: 0.82 AoV Pk Grad: 35.00 Aov Mn Grad: 20.00 JULIANA Cont.VTI: 1.21 AI Pk Keenan: 4.48 AI VTI: 2.62 AI Alias Keenan: 0.40 AI RV - PISA: 13.00 ERO - PISA: 5.00 LVOT LVOT Pk Keenan: 1.14 LVOT Mn Keenan: 0.76 LVOT VTI: 0.29 LVOT Pk Grad: 5.00 LVOT Mn Grad: 3.00 LVOT Diam: 2.00 LVOT Area: 3.14 Diastolic Function MV Pk E: 0.85 MV Pk A: 1.05 E/A: 0.80 E'Medial: 4.90 E/E' Med: 17.30 E' Laterial: 4.46 E/E' Lat: 19.00 Right Ventricle TAPSE (mm): 26.90 TVS' Keenan: 10.60 Tricuspid Valve TR Pk Keenan: 2.71 TR Pk Grad: 29.00 RA Press: 3.00 RVSP: 32.00 Great Vessels Aorta Sinus of Valsalva: 2.78 2.0-3.5 cm Ao Asc: 2.90 2.1-3.4 cm Updated in Other Vendor System with Status of Final Kevin Marie MD electronically signed on 07/14/2023 4:37:00 PM with status of Final
== END ==
LOC: HO.CARD 09:55
PROVIDERS: Visit Provider Internal Medicine Cardiovascular Disease
DX: I35.0 Nonrheumatic aortic (valve) stenosis (principal)
CPT/HCPCS: 93306

== ENCOUNTER → 2023-07-13 09:58 | Outpatient (BNV) | payer MEDICARE, SELFPAY | PROVIDERS: Visit Provider Internal Medicine Cardiovascular Disease | DX: I35.0 Nonrheumatic aortic (valve) stenosis (principal) | CPT/HCPCS: 93306 ==

== ENCOUNTER 2023-08-09 08:25 | Outpatient (AMB) | payer MEDICARE, SELFPAY ==
[2023-08-09 08:27] VITALS: BP 120/64; PULSE 56; BMI 34.1
--- NOTE | 2023-08-09 08:27 | MHC.OFFVIS ---
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: No Accompanied by: Self / Same As Patient Allergies codeine Allergy (Unknown, Verified 05/10/23 11:46) Nausea and Vomiting meperidine [Demerol] Allergy (Unknown, Verified 05/10/23 11:46) mental state penicillin V Allergy (Unknown, Verified 05/10/23 11:46) Rash Vwcwpbi-SLK-TnP Reductase Inhibitor Adverse Reaction (Intermediate, Verified 05/10/23 11:46) muscle aches all over Darvon Allergy (Unknown, Uncoded 05/10/23 11:46) mental state Dust Allergy (Unknown, Uncoded 05/10/23 11:46) Cough Latex Allergy (Unknown, Uncoded 05/10/23 11:46) Rash Sesonal Allergy (Unknown, Uncoded 05/10/23 11:46) sneze, cough HPI Comments Details: [place] comes for follow-up. Patient denies any new cardiac symptoms except for continued exertional shortness of breath. Her shortness of breath is worsening humid weather. She has no orthopnea, PND, leg edema. Her recent echocardiogram shows moderate aortic stenosis with normal LV ejection fraction with elevated filling pressures. She denies any palpitations. No exertional chest pain. No lightheadedness, syncope. She takes all her medication however she has not on any aspirin therapy. LDL is extremely well controlled now on PCSK9 inhibitor therapy at 54 mg/dL. [facility] Medical History Obesity (BMI 30-39.9) Somnolence, daytime YADY (obstructive sleep apnea) History of smoking at least 1 pack per day for at least 30 years COPD (chronic obstructive pulmonary disease) Cataract (lens) fragments in eye following cataract surgery, left eye Aortic stenosis HTN (hypertension) PVCs (premature ventricular contractions) Social History Patient Tobacco Use Status: Former Tobacco user Years Smoked: 66 Review of Systems Const Denies chills, Denies fatigue, Denies fever(s), Denies frequent falls, Denies weakness, Denies weight gain and Denies weight loss ENT Denies dizziness Card Denies chest pain, Denies leg edema, Denies lightheadedness, Denies palpitations, Denies dyspnea and Denies dyspnea on exertion Resp Denies cough, Denies dyspnea and Denies dyspnea on exertion GI Denies hematochezia Musc Denies abnormal gait, Denies muscle weakness, Denies numbness, Denies radiating pain into limb and Denies tingling Neuro Denies abnormal gait, Denies dizziness, Denies frequent falls, Denies numbness, Denies tingling and Denies weakness Endo Denies fatigue and Denies palpitations Physical Exam Vital Signs: Last Vital Signs Pulse 56 08/09/23 08:27 BP 120/64 08/09/23 08:27 BMI result Body Mass Index 34.1 Const General: cooperative, comfortable, no acute distress, alert, awake and well groomed Nutritional Appearance: obese Orientation/consciousness: patient oriented x3 Neck Neck: Yes trachea midline, Yes supple and Yes no JVD Resp Effort & Inspection: normal respiratory effort Auscultation: diminished lung sounds Cardio Jugular venous distension: no JVD Rate: regular rate Rhythm: regular rhythm Heart sounds: S1 normal heart sound present, S2 normal heart sound present, no click, no gallops and Murmur heart sound present systolic mid, decrescendo and crescendo GI Auscultation: normal bowel sounds Skin General skin exam: no rashes or lesions noted Neuro General: patient oriented x3 and no focal motor deficits Extrem General: Yes no clubbing, cyanosis or edema Office Procedures EKG Details: EKG shows sinus bradycardia with first-degree AV block otherwise normal EKG at 56 beats per minute [id number], Complete Assessment & Plan Assessment & Plan (1) Aortic stenosis: Comment: [id number], medical therapy, April 2022 Code(s): I35.0 - Nonrheumatic aortic (valve) stenosis Category: Medical Plan: Aortic stenosis which is worse at this point time at moderate aortic stenosis. Continue to monitor by echocardiogram on annual basis. Cardinal symptoms of aortic stenosis were discussed. No interventions required except for medical therapy. Advise low-dose aspirin therapy. Her LDL is extremely well optimized at this point in time on current therapy. Continue the same. Blood pressure is well optimized. (2) HTN (hypertension): Code(s): I10 - Essential (primary) hypertension Category: Medical Plan: Hypertension which is currently optimized on current therapy with lisinopril hydrochlorothiazide well as metoprolol. She has underlying diastolic dysfunction which can contribute to her shortness of breath although I think her shortness of breath most likely related to COPD. Continue to optimize COPD management. Signs and symptoms of heart failure were discussed. Encouraged to continue to use CPAP therapy. Continue participate in regular physical activity and weight loss program. Will follow up in the clinic in 1 year's time. Will follow in the clinic in 1 year's time. Coding Level of Care Code Est Pt Level 4 (28466) Diagnoses Aortic stenosis I35.0 HTN (hypertension) I10 CPT Codes EKG - CPT: [id number]-[id number], Complete ([id number])
== END 2023-08-09 08:54 | disposition home or self-care (01) ==
PROVIDERS: Visit Provider Internal Medicine Cardiovascular Disease
DX: I35.0 Nonrheumatic aortic (valve) stenosis (principal); I10 Essential (primary) hypertension
CPT/HCPCS: 93010; 99214

== ENCOUNTER → 2023-08-09 08:25 | Outpatient (BNVA) | payer MEDICARE, SELFPAY | PROVIDERS: Visit Provider Internal Medicine Cardiovascular Disease | DX: I35.0 Nonrheumatic aortic (valve) stenosis (principal); I10 Essential (primary) hypertension | CPT/HCPCS: 93005; 99212 ==

== ENCOUNTER 2023-08-11 09:40 | Outpatient (AMB) | payer MEDICARE, SELFPAY ==
[2023-08-11 09:52] VITALS: BP 140/62; PULSE 57; O2SAT 97; BMI 33.7
--- NOTE | 2023-08-11 09:52 | MHC.OFFVIS ---
Vital Signs 08/11/23 09:52 Height 4 ft 11 in Weight 167 lb BMI 33.7 BP 140/62 H Blood Pressure Location Lt brachial Position Sitting Pulse 57 Pulse Source Pulse Oximeter Pulse Oximetry (%) 97 Oxygen Delivery Method Room Air Intake Visit Reasons: COPD Intake Note: pt is here for follow up of YADY, and copd, she states she has a feeling of need for inhaler as soon as she wakes up. pt states she cannot tolerate wixela or incruse. 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 Required: No Allergies codeine Allergy (Unknown, Verified 08/11/23 10:13) Nausea and Vomiting meperidine [Demerol] Allergy (Unknown, Verified 08/11/23 10:13) mental state penicillin V Allergy (Unknown, Verified 08/11/23 10:13) Rash Ngtpfan-WQA-TaM Reductase Inhibitor Adverse Reaction (Intermediate, Verified 08/11/23 10:13) muscle aches all over Darvon Allergy (Unknown, Uncoded 08/11/23 10:13) mental state Dust Allergy (Unknown, Uncoded 08/11/23 10:13) Cough Latex Allergy (Unknown, Uncoded 08/11/23 10:13) Rash Sesonal Allergy (Unknown, Uncoded 08/11/23 10:13) sneze, cough Medication List - Last Reconciled 08/11/23 by Ami Calzada MD albuterol sulfate 90 mcg/actuation 0 mcg inhalation evolocumab (Repatha SureClick) 140 mg subcut Q2W 90 days ezetimibe 10 mg PO DAILY fluticasone propion-salmeterol 250-50 mcg/dose (Advair Diskus) 1 inh inhalation BID 30 days ketorolac 0.5% 0 drps ophthalmic (eye) lisinopril-hydrochlorothiazide 20-12.5 mg 1 tab PO DAILY metoprolol succinate ER 200 mg PO DAILY triamcinolone acetonide 0.025% 1 appl topical BID Do you need a note to return to daycare/school/sports/work: No HPI HPI COPD: Details: This 78 years old very pleasant female is here for follow-up for her CPAP and COPD. As far as use of CPAP is concerned she is doing excellent job and using it every night more than 7 hours per night. It works good and she sleeps very well. For COPD she has tried Incruse Ellipta in the past and she complained of urinary tract infection as a side effect. Now she was prescribed Wixela 250-50 , and complains that since starting to use this she started having more nasal congestion and upper respiratory infection like symptoms. The symptoms may be because of the powder form of the inhaler. She is using albuterol HFA( ProAir) and ends up using once or twice a day. She does have mild to moderate cough some wheezing. [facility] Medical History Obesity (BMI 30-39.9) Somnolence, daytime YADY (obstructive sleep apnea) History of smoking at least 1 pack per day for at least 30 years COPD (chronic obstructive pulmonary disease) Cataract (lens) fragments in eye following cataract surgery, left eye Aortic stenosis HTN (hypertension) PVCs (premature ventricular contractions) Social History Patient Tobacco Use Status: Former Tobacco user Years Smoked: 66 Review of Systems Const All systems reviewed & are unremarkable except as noted in HPI and below Eyes Reports no additional complaints ENT Reports no additional complaints Card Denies chest pain, Denies syncope, Denies irregular heart rhythm and Denies leg edema Resp Reports as per HPI GI Reports no additional complaints Reports nocturia Musc Reports no additional complaints Skin/Breast Reports system reviewed and no additional complaints, except as documented Neuro Reports no additional complaints and Denies syncope Psych Reports no additional complaints Endo Reports no additional complaints Wade/Lymph Reports no additional complaints Aller/Immun Reports no additional complaints Physical Exam Vital Signs: Last Vital Signs Pulse 57 08/11/23 09:52 BP 140/62 H 08/11/23 09:52 Pulse Ox 97 08/11/23 09:52 Oxygen Delivery Method Room Air 08/11/23 09:52 BMI result Body Mass Index 33.7 She is moderately obese, neck is short and obese,, face is round. 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 Cardio Palpation: normal PMI Rate: regular rate Rhythm: regular rhythm Heart sounds: no gallops and Murmur heart sound present (Faint systolic murmur at aortic area) GI Palpation (GI): Soft to palpation, nontender, No hepatosplenomegaly present and no masses Auscultation: normal bowel sounds Back/Spine/Pelvis Thoracic/Lumbar Spine: thoracic and lumbar spine normal to inspection Skin General skin exam: no rashes or lesions noted Neuro General: patient oriented x3 and no focal motor deficits Cranial nerves: Yes CN's II-XII intact bilaterally Extrem General: Yes normal to inspection, Yes no clubbing, cyanosis or edema and Yes no calf tenderness Psych Appearance: grossly normal and well kempt Speech and movement: Normal speech and movement present Results Reviewed Results Reviewed: Compliance report for the last 30 nights is reviewed. She has used 30/30 nights,. 100% of the time Average use it per night 7 hours 31 minutes. There is only slight. Air leak Residual AHI 0.3 Assessment & Plan Assessment & Plan (1) Obesity (BMI 30-39.9): Comment: SHE IS MODERATELY OBESE, AT HER AGE OF 78 NOT ABLE TO DO MUCH EXERCISE. WILL TRY TO WATCH HER DIET AND LOSE 5-10 LB OF WEIGHT Code(s): E66.9 - Obesity, unspecified Category: Medical Plan: She can try to restrict calories intake, but can not do much exercise. (2) YADY (obstructive sleep apnea): Comment: She is a confirmed case of obstructive sleep apnea moderately severe. Using CPAP every night with very good compliance and is benefiting. Code(s): G47.33 - Obstructive sleep apnea (adult) (pediatric) Category: Medical Plan: Advised to continue using CPAP every night (3) COPD (chronic obstructive pulmonary disease): Comment: As per pulmonary function test she has moderately severe obstructive airway disorder. There was slight improvement in FEF 25-75 , but not in the other numbers. Having nonspecific side effects from the use of Wixela ( probably because of powder preparation ) Code(s): J44.9 - Chronic obstructive pulmonary disease, unspecified Category: Medical Plan: Will change it to HFA formulation, and see if she. Can tolerate it better ADVAIR HFA 115-252 PUFFS B.I.D. IS PRESCRIBED. USE PROAIR 2 PUFFS Q 6 HOURS ONLY P.R.N.. Medications: New fluticasone propion-salmeterol 115-21 mcg/actuation (Advair HFA) 2 puffs inhalation Q12H 30 days 12 grams 5RF ASTHMA/COPD Coding Level of Care Code Est Pt Level 3 (37359) Diagnoses Obesity (BMI 30-39.9) E66.9 YADY (obstructive sleep apnea) G47.33 COPD (chronic obstructive pulmonary disease) J44.9
== END 2023-08-11 10:15 | disposition home or self-care (01) ==
PROVIDERS: PCP Internal Medicine; Visit Provider Internal Medicine
DX: E66.9 Obesity, unspecified (principal); G47.33 Obstructive sleep apnea (adult) (pediatric); J44.9 Chronic obstructive pulmonary disease, unspecified
CPT/HCPCS: 99213

== ENCOUNTER → 2023-08-11 09:40 | Outpatient (BNVA) | payer MEDICARE, SELFPAY | PROVIDERS: PCP Internal Medicine; Visit Provider Internal Medicine | DX: J44.9 Chronic obstructive pulmonary disease, unspecified (principal); G47.33 Obstructive sleep apnea (adult) (pediatric); E66.9 Obesity, unspecified; Z68.33 Body mass index [BMI] 33.0-33.9, adult | CPT/HCPCS: 99212 ==

== ENCOUNTER 2023-11-15 09:33 | Outpatient (AMB) | payer MEDICARE, SELFPAY ==
[2023-11-15 09:38] VITALS: BP 120/74; PULSE 59; O2SAT 98; BMI 35.1
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
== END 2023-11-15 10:05 | disposition home or self-care (01) ==
PROVIDERS: PCP Internal Medicine; Visit Provider Internal Medicine
DX: G47.33 Obstructive sleep apnea (adult) (pediatric) (principal); J44.9 Chronic obstructive pulmonary disease, unspecified
CPT/HCPCS: 99213

== ENCOUNTER → 2023-11-15 09:33 | Outpatient (BNVA) | payer MEDICARE, SELFPAY | PROVIDERS: PCP Internal Medicine; Visit Provider Internal Medicine | DX: G47.33 Obstructive sleep apnea (adult) (pediatric) (principal); J44.9 Chronic obstructive pulmonary disease, unspecified | CPT/HCPCS: 99212 ==

== ENCOUNTER 2024-03-26 09:32 | Outpatient (AMB) | payer MEDICARE, SELFPAY ==
[2024-03-26 09:39] VITALS: BP 132/62; PULSE 64; O2SAT 97; BMI 33.3
--- NOTE | 2024-03-26 09:39 | MHC.OFFVIS ---
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: No Allergies codeine Allergy (Unknown, Verified 03/26/24 10:02) Nausea and Vomiting meperidine [Demerol] Allergy (Unknown, Verified 03/26/24 10:02) mental state penicillin V Allergy (Unknown, Verified 03/26/24 10:02) Rash Ntmstdq-NVX-XlX Reductase Inhibitor Adverse Reaction (Intermediate, Verified 03/26/24 10:02) muscle aches all over Darvon Allergy (Unknown, Uncoded 03/26/24 10:02) mental state Dust Allergy (Unknown, Uncoded 03/26/24 10:02) Cough Latex Allergy (Unknown, Uncoded 03/26/24 10:02) Rash Sesonal Allergy (Unknown, Uncoded 03/26/24 10:02) sneze, cough Medication List - Last Reconciled 03/26/24 by Ami Calzada MD albuterol sulfate 90 mcg/actuation 0 mcg inhalation cholecalciferol (vitamin D3) 50 mcg PO DAILY evolocumab (Repatha SureClick) 140 mg subcut Q2W 90 days ezetimibe 10 mg PO DAILY lisinopril-hydrochlorothiazide 20-12.5 mg 1 tab PO DAILY magnesium 200 mg PO DAILY metoprolol succinate ER 200 mg PO DAILY triamcinolone acetonide 0.025% 1 appl topical BID Do you need a note to return to daycare/school/sports/work: No HPI HPI COPD: Details: This 78 years old female is very pleasant and is here for routine follow-up for her COPD and obstructive sleep apnea. COPD has remained stable and she uses albuterol 1 or 2 puffs only once a day. She has had no acute exacerbation. As in the past she has not been able to tolerate an LABDs or ICS agents. For obstructive sleep apnea she does use CPAP for regularly except misses sometime when she has increased nasal congestion. She feels comfortable with the nasal mask, but complains of dry mouth even though she does use the water in the humidification tank. [facility] Medical History Obesity (BMI 30-39.9) Somnolence, daytime YADY (obstructive sleep apnea) History of smoking at least 1 pack per day for at least 30 years COPD (chronic obstructive pulmonary disease) Cataract (lens) fragments in eye following cataract surgery, left eye Aortic stenosis HTN (hypertension) PVCs (premature ventricular contractions) Social History Patient Tobacco Use Status: Former Tobacco user Years Smoked: 66 Review of Systems Const All systems reviewed & are unremarkable except as noted in HPI and below Eyes Reports no additional complaints ENT Reports no additional complaints Card Denies chest pain, Denies syncope, Denies irregular heart rhythm and Denies leg edema Resp Reports as per HPI GI Reports no additional complaints Reports nocturia Musc Reports no additional complaints Skin/Breast Reports system reviewed and no additional complaints, except as documented Neuro Reports no additional complaints and Denies syncope Psych Reports no additional complaints Endo Reports no additional complaints Wade/Lymph Reports no additional complaints Aller/Immun Reports no additional complaints Physical Exam Vital Signs: Last Vital Signs Pulse 64 03/26/24 09:39 BP 132/62 03/26/24 09:39 Pulse Ox 97 03/26/24 09:39 Oxygen Delivery Method Room Air 03/26/24 09:39 BMI result Body Mass Index 33.3 She is moderately obese, neck is short and obese,, face is round. 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 Cardio Palpation: normal PMI Rate: regular rate Rhythm: regular rhythm Heart sounds: no gallops and Murmur heart sound present (Faint systolic murmur at aortic area) GI Palpation (GI): Soft to palpation, nontender, No hepatosplenomegaly present and no masses Auscultation: normal bowel sounds Back/Spine/Pelvis Thoracic/Lumbar Spine: thoracic and lumbar spine normal to inspection Skin General skin exam: no rashes or lesions noted Neuro General: patient oriented x3 and no focal motor deficits Cranial nerves: Yes CN's II-XII intact bilaterally Extrem General: Yes normal to inspection, Yes no clubbing, cyanosis or edema and Yes no calf tenderness Psych Appearance: grossly normal and well kempt Speech and movement: Normal speech and movement present Results Reviewed Results Reviewed: Compliance report reviewed and she has used 24/30 nights, 80%. Average use it per night 7 hours 14 minutes. No significant air leak. And residual AHI is 0.3 Assessment & Plan Assessment & Plan (1) Obesity (BMI 30-39.9): Comment: SHE IS MODERATELY OBESE, AT HER AGE OF 78 NOT ABLE TO DO MUCH EXERCISE. HAS LOST SOME WEIGHT THIS TIME. Code(s): E66.9 - Obesity, unspecified Category: Medical Plan: COMMENDED FOR LOSING WEIGHT. CONTINUE TO WATCH DIET AND TRY TO WALK MUCH TOLERATED. (2) YADY (obstructive sleep apnea): Comment: She is a confirmed case of obstructive sleep apnea moderately severe. Using CPAP every night with very good compliance and is benefiting. She uses the nasal mask, has requested to get a small size nasal mask. Code(s): G47.33 - Obstructive sleep apnea (adult) (pediatric) Category: Medical Plan: ADVISED TO USE HUMIDIFICATION REGULARLY. ALSO USE A VAPORIZER OR HUMIDIFIER IN THE BEDROOM. (3) COPD (chronic obstructive pulmonary disease): Comment: As per pulmonary function test she has moderately severe obstructive airway disorder. There was slight improvement in FEF 25-75 , but not in the other numbers. She has not been able to tolerate long-acting BDs or inhaled steroids. She is doing well with p.r.n. use of albuterol HFA, and uses only for once a day. Code(s): J44.9 - Chronic obstructive pulmonary disease, unspecified Category: Medical Plan: Continue to use albuterol HFA 2 puffs Q 4-6 hours p.r.n. but avoid excessive use it. Coding Level of Care Code Est Pt Level 3 (07654) Diagnoses Obesity (BMI 30-39.9) E66.9 YADY (obstructive sleep apnea) G47.33 COPD (chronic obstructive pulmonary disease) J44.9
== END 2024-03-26 10:03 | disposition home or self-care (01) ==
PROVIDERS: PCP Internal Medicine; Visit Provider Internal Medicine
DX: E66.9 Obesity, unspecified (principal); G47.33 Obstructive sleep apnea (adult) (pediatric); J44.9 Chronic obstructive pulmonary disease, unspecified
CPT/HCPCS: 99213

== ENCOUNTER → 2024-03-26 09:32 | Outpatient (BNVA) | payer MEDICARE, SELFPAY | PROVIDERS: PCP Internal Medicine; Visit Provider Internal Medicine | DX: J44.9 Chronic obstructive pulmonary disease, unspecified (principal); G47.33 Obstructive sleep apnea (adult) (pediatric); E66.9 Obesity, unspecified; Z68.33 Body mass index [BMI] 33.0-33.9, adult | CPT/HCPCS: 99212 ==

== ENCOUNTER → 2024-07-26 10:04 | Outpatient (REF) | payer MEDICARE, SELFPAY ==
--- NOTE | 2024-07-26 10:18 | CA_ITS ---
Transthoracic Echocardiogram Patient (Last, First, Middle): Geneva Obrien H Gender: Female Date of : 1945 Age: 78 Procedure Date: 07/26/2024 Procedure Type: Transthoracic Echocardiogram Location: OP Height: 142.24 cm Weight: 76.2 kg BSA: 1.65 m2 Heart Rate: 51 bpm BP: 160 / 90 mmHg Mixer Diamond Powder: JOSE Referring MD: Kevin Marie MD Symptoms: I35.0 - Nonrheumatic aortic (valve) stenosis Study Quality: Adequate ECG Rhythm: Bradycardia Conclusions: - The left ventricular systolic function is normal. The visually estimated ejection fraction is between 60-65%. - There is mild to moderate aortic valve stenosis. Findings Left Ventricle Normal left ventricular cavity size. There is normal left ventricular wall thickness. The left ventricular systolic function is normal. The visually estimated ejection fraction is between 60-65%. There is no evidence of regional wall motion abnormalities. Evidence suggests grade I (mild) diastolic dysfunction. Right Ventricle Normal right ventricular cavity size and systolic function. Atria Both atria are normal in size. Aortic Valve There is mild calcification of the aortic valve. There is mild to moderate aortic valve stenosis. The peak aortic velocity is 2.93 m/s with a calculated peak gradient of 34 mmHg. The mean gradient is 21 mmHg. The aortic valve area is 1.36 cm2. There is mild aortic valve regurgitation. Mitral Valve There is mild mitral annular calcification. There is trace mitral valve regurgitation. There is no mitral valve stenosis. Pulmonic Valve The pulmonic valve is likely normal. Tricuspid Valve There is trace tricuspid valve regurgitation. There is no evidence of pulmonary hypertension. Great Vessels The asc aorta is normal in size. Venous The inferior vena cava is normal in size and collapses greater than 50% with inspiration. Pericardium/Pleural There is a trivial pericardial effusion. Prior Study Comparison No significant change compared to prior study dated: 07/13/2023. Measurements 2D Linear Measurements IVSd: 0.86 0.6-0.9/0.6-1.0 cm LVIDd: 4.35 3.9-5.3/4.2-5.9 cm LVIDd Index: 2.64 2.4-3.2/2.2-3.1 cm/m2 LVIDs: 2.33 2.0-3.6 cm LVPWd: 0.89 0.7-1.1 cm LA Diam: 3.10 2.7-3.8/3.0-4.0 cm LAIDs Index: 1.88 1.5-2.3 cm/m2 LV Mass: 149.53 67-162/88-224 g LV Mass Index: 90.62 43-95/49-115 g/m2 LVOT Diam: 2.00 3.0+(-)1.3 cm 2D Systolic Function EF 4C: 65.70 >55% EF 2C: 72.10 >55% EF BiP: 70.00 >55% Mitral Valve MV Pk E: 0.96 MV PK A: 1.18 MV Decel Time: 278.00 E/A: 0.80 E'Lateral: 5.55 E'Medial: 4.24 E/E' Med: 22.50 E/E' Lat: 17.20 PHT: 81.00 MVA PHT: 2.72 Decel [place]: 3.43 Aortic Valve AoV Pk Keenan: 2.93 AoV Mn Keenan: 2.12 AoV VTI: 0.81 AoV Pk Grad: 34.00 Aov Mn Grad: 21.00 JULIANA Cont.VTI: 1.36 AI Pk Keenan: 4.10 AI [place]: 2.08 LVOT LVOT Pk Keenan: 1.38 LVOT Mn Keenan: 0.92 LVOT VTI: 0.35 LVOT Pk Grad: 8.00 LVOT Mn Grad: 4.00 LVOT Diam: 2.00 LVOT Area: 3.14 Diastolic Function MV Pk E: 0.96 MV Pk A: 1.18 E/A: 0.80 E'Medial: 4.24 E/E' Med: 22.50 E' Laterial: 5.55 E/E' Lat: 17.20 Right Ventricle TAPSE (mm): 30.90 TVS' Keenan: 11.30 Tricuspid Valve TR Pk Keenan: 2.50 TR Pk Grad: 25.00 RA Press: 3.00 RVSP: 28.00 Great Vessels Aorta Sinus of Valsalva: 3.30 2.0-3.5 cm Ao Asc: 3.00 2.1-3.4 cm Pulmonary Valve PV Pk Keenan: 0.98 Peak PV Grad: 4.00 Updated in Other Vendor System with Status of Final Dmitry Harris MD electronically signed on 07/28/2024 10:41:47 AM with status of Final
== END ==
LOC: HO.CARD 10:04
PROVIDERS: PCP Internal Medicine; Visit Provider Internal Medicine Cardiovascular Disease
DX: I35.0 Nonrheumatic aortic (valve) stenosis (principal)
CPT/HCPCS: 93306

== ENCOUNTER → 2024-07-26 10:18 | Outpatient (BNV) | payer MEDICARE, SELFPAY | PROVIDERS: PCP Internal Medicine; Visit Provider Internal Medicine | DX: I35.2 Nonrheumatic aortic (valve) stenosis with insufficiency (principal); I35.8 Other nonrheumatic aortic valve disorders; I34.81 Nonrheumatic mitral (valve) annulus calcification; I51.89 Other ill-defined heart diseases | CPT/HCPCS: 93306 ==

== ENCOUNTER 2024-08-07 08:52 | Outpatient (AMB) | payer MEDICARE, SELFPAY ==
[2024-08-07 08:59] VITALS: BP 130/64; PULSE 62; BMI 34.9
--- NOTE | 2024-08-07 08:59 | MHC.OFFVIS ---
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 Accompanied by: Self / Same As Patient Allergies codeine Allergy (Unknown, Verified 03/26/24 10:02) Nausea and Vomiting meperidine [Demerol] Allergy (Unknown, Verified 03/26/24 10:02) mental state penicillin V Allergy (Unknown, Verified 03/26/24 10:02) Rash Dvnbfwg-HUX-ZhS Reductase Inhibitor Adverse Reaction (Intermediate, Verified 03/26/24 10:02) muscle aches all over Darvon Allergy (Unknown, Uncoded 03/26/24 10:02) mental state Dust Allergy (Unknown, Uncoded 03/26/24 10:02) Cough Latex Allergy (Unknown, Uncoded 03/26/24 10:02) Rash Sesonal Allergy (Unknown, Uncoded 03/26/24 10:02) sneze, cough Medication List - Last Reconciled 08/07/24 by Kevin Marie MD albuterol sulfate 90 mcg/actuation 0 mcg inhalation aspirin (Ecotrin Low Strength) 81 mg PO DAILY cholecalciferol (vitamin D3) 50 mcg PO DAILY evolocumab (Repatha SureClick) 140 mg subcut Q2W ezetimibe 10 mg PO DAILY lisinopril-hydrochlorothiazide 20-12.5 mg 1 tab PO DAILY magnesium 200 mg PO DAILY metoprolol succinate ER 200 mg PO DAILY triamcinolone acetonide 0.025% 1 appl topical BID HPI Comments Details: Geneva comes for follow-up of her echocardiogram. This shows [id number] aortic stenosis which is mostly stable with normal LV ejection fraction without any major valvular abnormality. She says over the last few months she has been having increasing exertional shortness of breath. No exertional chest pain. However she says when she walks out with a dog she is limited. She takes all her medications. No orthopnea, PND, leg edema. No lightheadedness, syncope. No prolonged palpitation. [facility] Medical History Obesity (BMI 30-39.9) Somnolence, daytime YADY (obstructive sleep apnea) History of smoking at least 1 pack per day for at least 30 years COPD (chronic obstructive pulmonary disease) Cataract (lens) fragments in eye following cataract surgery, left eye Aortic stenosis HTN (hypertension) PVCs (premature ventricular contractions) Social History Patient Tobacco Use Status: Former Tobacco user Years Smoked: 66 Review of Systems Const Denies chills, Denies fatigue, Denies fever(s), Denies frequent falls, Denies weakness, Denies weight gain and Denies weight loss ENT Denies dizziness Card Denies chest pain, Denies leg edema, Denies lightheadedness, Denies palpitations, Reports dyspnea and Reports dyspnea on exertion Resp Denies cough, Reports dyspnea and Reports dyspnea on exertion GI Denies hematochezia Musc Denies abnormal gait, Denies muscle weakness, Denies numbness, Denies radiating pain into limb and Denies tingling Neuro Denies abnormal gait, Denies dizziness, Denies frequent falls, Denies numbness, Denies tingling and Denies weakness Endo Denies fatigue and Denies palpitations Physical Exam Vital Signs: Last Vital Signs Pulse 62 08/07/24 08:59 BP 130/64 08/07/24 08:59 BMI result Body Mass Index 34.9 Const General: cooperative, comfortable, no acute distress, alert, awake and well groomed Nutritional Appearance: obese Orientation/consciousness: patient oriented x3 Neck Neck: Yes trachea midline, Yes supple and Yes no JVD Resp Effort & Inspection: normal respiratory effort Auscultation: diminished lung sounds Cardio Jugular venous distension: no JVD Rate: regular rate Rhythm: regular rhythm Heart sounds: S1 normal heart sound present, S2 normal heart sound present, no click, no gallops and Murmur heart sound present systolic mid, decrescendo and crescendo GI Auscultation: normal bowel sounds Skin General skin exam: no rashes or lesions noted Neuro General: patient oriented x3 and no focal motor deficits Extrem General: Yes no clubbing, cyanosis or edema Office Procedures EKG Details: EKG shows normal sinus rhythm with first-degree AV block with low-voltage QRS [id number], Complete Assessment & Plan Assessment & Plan (1) Aortic stenosis: Comment: Olmt-iy-jkwjxgra, medical therapy, April 2022 Code(s): I35.0 - Nonrheumatic aortic (valve) stenosis Category: Medical Plan: Aortic stenosis which is [id number]. Unlikely to be cause of her symptoms of shortness of breath. Continue to monitor clinically. Cardinal symptoms associated with aortic stenosis were discussed. Continue low-dose aspirin therapy. Continue aggressive lipid modification. Advised lipid panel in near future. Will follow-up echocardiogram next year. (2) SOB (shortness of breath) on exertion: Comment: Dyspnea on exertion, moderately severe, probably secondary to chronic obstructive pulmonary disease/ . And overweight She was observed to walk fairly fast without any distress. 6 minutes walk test was negative for hypoxemia. She is is encouraged to lose weight, and do deep breathing exercises t.i.d.. Code(s): R06.02 - Shortness of breath Category: Medical Plan: Increasing exertional shortness of breath in his elderly woman with multiple risk factors. Recommend coronary CTA to evaluate for myocardial ischemia. Also advised to follow up with Pulmonary for better optimization with medications. Continue to participate in weight loss program which should help with her shortness of breath as well. Continue CPAP therapy. (3) HTN (hypertension): Code(s): I10 - Essential (primary) hypertension Category: Medical Plan: Hypertension which is currently well optimized on current medication. Importance of good blood pressure control was discussed. Advised to monitor blood pressure and maintain a log. Target goal blood pressure less than 130/84. Low-salt diet was discussed. Follow up in the clinic in 1 year's time, sooner p.r.n.. Thank you for allowing me to partake in her care Orders: Orders Basic Metabolic Panel Today I35.0 - Nonrheumatic aortic (valve) stenosis CA echo transthoracic complete 1 Year I35.0 - Nonrheumatic aortic (valve) stenosis CT Cardiac Coronary Angio 1 Week R06.02 - Shortness of breath Lipid Panel Today I35.0 - Nonrheumatic aortic (valve) stenosis Medications: New aspirin (Ecotrin Low Strength) 81 mg PO DAILY 30 tabs 1RF Coding Level of Care Code Est Pt Level 4 (44246) Complex EM visit Add On G2211 Diagnoses Aortic stenosis I35.0 SOB (shortness of breath) on exertion R06.02 HTN (hypertension) I10 CPT Codes EKG - CPT: 83033-[id number], Complete ([id number])
== END 2024-08-07 09:24 | disposition home or self-care (01) ==
LOC: HO.HCS 08:53
PROVIDERS: Visit Provider Internal Medicine Cardiovascular Disease
DX: I35.0 Nonrheumatic aortic (valve) stenosis (principal); R06.02 Shortness of breath; I10 Essential (primary) hypertension
CPT/HCPCS: 93010; 99214; G2211

== ENCOUNTER → 2024-08-07 08:52 | Outpatient (BNVA) | payer MEDICARE, SELFPAY | PROVIDERS: Visit Provider Internal Medicine Cardiovascular Disease | DX: I35.0 Nonrheumatic aortic (valve) stenosis (principal); I10 Essential (primary) hypertension; R06.02 Shortness of breath; I44.0 Atrioventricular block, first degree | CPT/HCPCS: 93005; 99212 ==

== ENCOUNTER 2024-09-19 09:32 | Outpatient (REF) | payer MEDICARE, SELFPAY ==
[2024-09-19 11:08] LABS: Anion Gap 11 (12-20); Blood Urea Nitrogen 27 mg/dL (9-16); Calcium 10.1 mg/dL (8.4-10.2); Carbon Dioxide 29 mmol/L (22-29); Chloride 104 mmol/L (96-108); Cholesterol 137 mg/dL (<200); Estimated Glomerular Filt Rate 45; HDL Cholesterol 43 mg/dL (>40); Potassium 4.0 mmol/L (3.3-5.1); Sodium 140 mmol/L (135-145); Triglycerides 184 mg/dL (<150)
== END 2024-09-19 09:33 | disposition home or self-care (01) ==
LOC: HO.LAB 09:32
PROVIDERS: PCP Internal Medicine; Visit Provider Internal Medicine Cardiovascular Disease
DX: I35.0 Nonrheumatic aortic (valve) stenosis (principal); Z13.6 Encounter for screening for cardiovascular disorders
CPT/HCPCS: 36415; 80048; 80061

== ENCOUNTER 2024-10-15 09:53 | Outpatient (AMB) | payer MEDICARE, SELFPAY ==
[2024-10-15 10:21] VITALS: BP 130/64; PULSE 50; O2SAT 97; BMI 34.3
--- NOTE | 2024-10-15 10:21 | MHC.OFFVIS ---
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 Allergies codeine Allergy (Unknown, Verified 10/15/24 10:33) Nausea and Vomiting meperidine (Demerol) Allergy (Unknown, Verified 10/15/24 10:33) mental state penicillin V Allergy (Unknown, Verified 10/15/24 10:33) Rash [id number] Reductase Inhibitor Adverse Reaction (Intermediate, Verified 10/15/24 10:33) muscle aches all over Darvon Allergy (Unknown, Uncoded 10/15/24 10:33) mental state Dust Allergy (Unknown, Uncoded 10/15/24 10:33) Cough Latex Allergy (Unknown, Uncoded 10/15/24 10:33) Rash Sesonal Allergy (Unknown, Uncoded 10/15/24 10:33) sneze, cough Medication List - Last Reconciled 10/15/24 by Ami Calzada MD albuterol sulfate 90 mcg/actuation 0 mcg inhalation aspirin (Ecotrin Low Strength) 81 mg PO DAILY cholecalciferol (vitamin D3) 50 mcg PO DAILY evolocumab (Repatha SureClick) 140 mg subcut Q2W ezetimibe 10 mg PO DAILY lisinopril-hydrochlorothiazide 20-12.5 mg 1 tab PO DAILY magnesium 200 mg PO DAILY metoprolol succinate ER 200 mg PO DAILY triamcinolone acetonide 0.025% 1 appl topical BID Do you need a note to return to daycare/school/sports/work: No HPI HPI COPD: Details: TERI IS 79 YEARS OLD FEMALE, MODERATELY OBESE, WITH DIAGNOSIS OF OBSTRUCTIVE SLEEP APNEA. SHE ALSO HAS ONLY MILD DEGREE OF OBSTRUCTIVE AIRWAY DISORDER. SHE IS NONSMOKER. COMES AFTER 6 MONTHS FOR FOLLOW-UP. USES CPAP VERY REGULARLY EVERY NIGHT AND SLEEPS GOOD. BREATHING HAS BEEN OKAY AND SHE USES ALBUTEROL 2 PUFFS ON AN AVERAGE , ONCE OR TWICE A DAY. SHE IS NOT ON ANY LONG-ACTING BRONCHODILATORS. WEIGHT HAS REMAINED UNCHANGED. FORMERLY [facility] Medical History Obesity (BMI 30-39.9) Somnolence, daytime YADY (obstructive sleep apnea) History of smoking at least 1 pack per day for at least 30 years COPD (chronic obstructive pulmonary disease) Cataract (lens) fragments in eye following cataract surgery, left eye Aortic stenosis HTN (hypertension) PVCs (premature ventricular contractions) Social History Patient Tobacco Use Status: Former Tobacco user Years Smoked: 66 Review of Systems Const All systems reviewed & are unremarkable except as noted in HPI and below Eyes Reports no additional complaints ENT Reports no additional complaints Card Denies chest pain, Denies syncope, Denies irregular heart rhythm and Denies leg edema Resp Reports as per HPI GI Reports no additional complaints Reports nocturia Musc Reports no additional complaints Skin/Breast Reports system reviewed and no additional complaints, except as documented Neuro Reports no additional complaints and Denies syncope Psych Reports no additional complaints Endo Reports no additional complaints Wade/Lymph Reports no additional complaints Aller/Immun Reports no additional complaints Physical Exam Vital Signs: Last Vital Signs Pulse 50 10/15/24 10:21 BP 130/64 10/15/24 10:21 Pulse Ox 97 10/15/24 10:21 Oxygen Delivery Method Room Air 10/15/24 10:21 BMI result Body Mass Index 34.3 She is moderately obese, neck is short and obese,, face is round. 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 Cardio Palpation: normal PMI Rate: regular rate Rhythm: regular rhythm Heart sounds: no gallops and Murmur heart sound present (Faint systolic murmur at aortic area) GI Palpation (GI): Soft to palpation, nontender, No hepatosplenomegaly present and no masses Auscultation: normal bowel sounds Back/Spine/Pelvis Thoracic/Lumbar Spine: thoracic and lumbar spine normal to inspection Skin General skin exam: no rashes or lesions noted Neuro General: patient oriented x3 and no focal motor deficits Cranial nerves: Yes CN's II-XII intact bilaterally Extrem General: Yes normal to inspection, Yes no clubbing, cyanosis or edema and Yes no calf tenderness Psych Appearance: grossly normal and well kempt Speech and movement: Normal speech and movement present Results Reviewed Results Reviewed: COMPLIANCE REPORT FOR THE LAST 30 DAYS REVIEWED SHE USED 29/30 NIGHTS, 97%, AND MISSED USING ONLY 1 NIGHT. AVERAGE USE IT PER NIGHT 7 HOURS 57 MINUTES. NO SIGNIFICANT AIR LEAK. RESIDUAL AHI ONLY 0.3 Assessment & Plan Assessment & Plan (1) Obesity (BMI 30-39.9): Comment: SHE IS MODERATELY OBESE, CURRENT BMI 34.3 SHE IS RELATIVELY SEDENTARY. CLAIMS THAT SHE IS TRYING TO WATCH HER DIET, BUT HAS NOT BEEN ABLE TO LOSE MUCH WEIGHT. Code(s): E66.9 - Obesity, unspecified Category: Medical Plan: AT HER AGE OF 79 SHE IS NOT ABLE TO DO MUCH EXERCISE. ADVISED THAT SHE HAS TO WATCH HER DIET AND TRY TO CUT DOWN THE CALORIES INTAKE MUCH SHE CAN (2) YADY (obstructive sleep apnea): Comment: She is a confirmed case of obstructive sleep apnea moderately severe. Using CPAP every night with very good compliance and is benefiting. She uses the nasal mask of small size which she tolerates well. COMPLIANCE IS EXCELLENT. Code(s): G47.33 - Obstructive sleep apnea (adult) (pediatric) Category: Medical Plan: Commended for good compliance and advised to keep on using the CPAP regularly every night. (3) COPD (chronic obstructive pulmonary disease): Comment: As per pulmonary function test she has moderately severe obstructive airway disorder. There was slight improvement in FEF 25-75 , but not in the other numbers. She has not been able to tolerate long-acting BDs or inhaled steroids. She is doing well with p.r.n. use of albuterol HFA, and is doing okay with using albuterol once or twice a day. Code(s): J44.9 - Chronic obstructive pulmonary disease, unspecified Category: Medical Plan: Continue to use albuterol HFA 2 puffs Q 6 hours p.r.n. Coding Level of Care Code Est Pt Level 3 (27088) Diagnoses Obesity (BMI 30-39.9) E66.9 YADY (obstructive sleep apnea) G47.33 COPD (chronic obstructive pulmonary disease) J44.9
== END 2024-10-15 10:41 | disposition home or self-care (01) ==
LOC: HO.HPS 09:54
PROVIDERS: PCP Internal Medicine; Visit Provider Internal Medicine
DX: E66.9 Obesity, unspecified (principal); G47.33 Obstructive sleep apnea (adult) (pediatric); J44.9 Chronic obstructive pulmonary disease, unspecified
CPT/HCPCS: 99213

== ENCOUNTER → 2024-10-15 09:53 | Outpatient (BNVA) | payer MEDICARE, SELFPAY | PROVIDERS: PCP Internal Medicine; Visit Provider Internal Medicine | DX: G47.33 Obstructive sleep apnea (adult) (pediatric) (principal); J44.9 Chronic obstructive pulmonary disease, unspecified; E66.9 Obesity, unspecified; Z99.89 Dependence on other enabling machines and devices; Z79.899 Other long term (current) drug therapy; Z68.34 Body mass index [BMI] 34.0-34.9, adult | CPT/HCPCS: 99212 ==